=== PATIENT | male | born 1940 | race Caucasian/White ===

== ENCOUNTER 2024-06-16 13:12 | Inpatient (IN) | payer MEDICARE, SELFPAY ==
[2024-06-16] VITALS (17 sets, daily range): BP systolic 146–224; BP diastolic 68–112; BMI 21.2
--- NOTE | 2024-06-16 10:54 | ED.GENMED ---
History of Present Illness
General
Chief Complaint: Abdominal Symptoms
Source: patient, records and spouse
Time Seen by Provider: 06/16/24 10:17
History of Present Illness
History of Present Illness:
83-year-old male with past medical history of TIA, paroxysmal atrial fibrillation, hypertension, hyperlipidemia presenting to the emergency department at request by primary care provider for evaluation after patient started experiencing upper
abdominal pain and nausea and exertional dyspnea this past Friday. Patient notes that he often will ride his bike 5 to 6 miles around [facility] without any issues but acutely on Friday was barely able to walk 1/2 mile without significant
symptoms and reports since then with any continued attempted light exercise patient gets severe upper abdominal discomfort, nausea and shortness of breath. Presently patient reports he is asymptomatic. Denies any fevers or recent illnesses.
Patient notes that he has records with him that show a stress test about a year or so ago that did not show any ST changes. Patient is on Xarelto due to his history of paroxysmal atrial fibrillation reports good compliance with this. No other
concerns presently
Past History
Past History
ED Past Medical History: Arrthythmia, GERD, HTN and Hypercholesterolemia
ED Past Surgical History: Appendectomy, Orthopedic and Tonsilectomy
Social History
Tobacco: Non-smoker
Alcohol: None
Drug: None
Personal:
Living: with family
Review of Systems
Review of Systems
All Other Systems: ROS reviewed and negative except as documented in HPI and ROS
Phy Exam
Physical Exam
Physical Exam:
GENERAL: Alert , in no apparent distress
EYE: clear conjunctiva b/l
HEAD: NCAT
ENT: mmm.
CARDIAC: Regular rate and rhythm, systolic murmur LSB .
LUNGS: Clear breath sounds bilaterally, no acute respiratory distress, no wheezes/rales/rhonchi
ABDOMEN: Soft, without focal tenderness, no r/g, no cvat
NEUROLOGICAL: Alert and oriented
SKIN: Warm and dry, skin intact.
MUSCULOSKELETAL: well perfused.
PSYCH: Normal and appropriate interaction.
Scores
Heart Failure Risk
Heart Failure Risk Score: Not Applicable
Heart Score for Chest Pain Patients
STEMI patient?: No
History: Moderately Suspicious
ECG: Normal
Age: >/= 65 years
Risk Factors: 1 or 2 Risk Factors
Troponin: </= Normal Limit
Heart Score for Chest Pain Patients: 4
Heart Score Risk: 20.3% MACE over next 6 weeks
Withdrawal Assessment of Alcohol
Withdrawal Assessment Completed?: Not applicable
Course
Orders/Labs/Results
Orders:
Orders
06/16/24 10:21
Electrocardiogram (*1) Urgent
Reason for Study: Abdominal Pain
EKG- Treatment ONCE
06/16/24 10:48
CT Abd/pelvis W Iv Cont Urgent
Comment:
Reason For Exam: intermittent upper abd pain, previous appy
Complete Blood Count/No Diff Urgent
Comprehensive Metabolic Panel Urgent
Lipase Urgent
Troponin I Urgent
Urinalysis Reflex To Culture Urgent
Date Specimen was Collected: 06/16/24
Time Specimen was Collected: 10:36
06/16/24 12:09
Aspirin Chewable [Low Strength Aspirin] 324 mg PO NOW STA
06/16/24 12:12
Heparin 4,000 units IV NOW STA
Nursing to Place Non Medication Order As Directed
Physician Order: PTT 6 hours after initial start of Heparin infusion
Above order entered?: Yes
06/16/24 12:15
Heparin 41531 Units/250 ml 25,000 units in 250 ml IV PER PROTOCOL
Weight to be used for heparin protocol in kilograms (kg):: 66.1
Protocol:: Cardiac Tx/Acute Coronary
PTT Goal Range to be used:: PTT 73 to 111 seconds
Order type:: Initial
INITIAL Infusion Dose (UNITS/KG/hr) & then follow protocol:: 12 units/kg/hr
Infusion Dose in UNITS/hr & then follow protocol (UNITS/hr):: 800
INFUSION RATE in mL/hr & then follow protocol (mL/hr):: 8
PTT less than or equal to 64 seconds:: Increase rate by 200 units/hr (+ 2 mL/hr)
PTT 64.1 to 72.9 seconds:: Increase rate by 100 units/hr (+ 1 mL/hr)
PTT 73 to 111 seconds:: Target Range. No change in rate.
PTT 111.1 to 130.9 seconds:: Decrease rate by 100 units/hr (- 1 mL/hr)
PTT 131 to 199.9 seconds:: HOLD for 1 hr. Then decrease rate by 200 units/hr (- 2 mL/hr)
PTT greater than or equal to 200 seconds:: HOLD for 2 hrs & Notify Provider. Then decrease by 200 units/hr (-
2 mL/hr)
Lab follow-up:: Each change, PTT q6h until 2 consecutive are therapeutic. Then PTT
daily.
06/16/24 12:25
PTT Urgent
Comment: Obtain baseline before beginning heparin infusion if not already collected
06/16/24 12:53
Admit/Transfer Patient As Directed
Co-Sign Provider:
Level of Care: Inpatient admission
Assign to:: IVU
Physician / Group: Bobbi Concepcion
Diagnosis: NSTEMI
Reason for Hospitalization: NSTEMI
Expected length of stay greater than two midnights?: Yes
ELOS- Estimated Length of Stay in days: 3
I certify the patient meets the requirements for IP care: Yes
PRN Pain Medication Management As Directed
May give lesser potent ordered pain med per pt: Yes
preference::
Protocol:: Medication orders for pain may be administered in a
manner that supports deferring to patient preference
when the pt is:
- Requesting an ordered lesser potent pain medication.
Least to most potent pain medications are defined
as: acetaminophen < NSAID < tramadol < opioids
(morphine, oxycodone, hydromorphone).
- Requesting a lesser dose of the same medication IF
ORDERED.
- Requesting a less intrusive route of administration
if both routes are prescribed by the provider (PO <
IV).
06/16/24 12:56
Code Status As Directed
Resuscitation Status: Full Code
Abnormal Lab Results
06/16/24
10:48
RBC 3.89 L 10^6/uL
(4.70-6.10)
Hgb 11.9 L g/dL
(13.0-18.0)
Hct 33.9 L %
(39.0-52.0)
Sodium 133 L mmol/L
(135-145)
Chloride 96 L mmol/L
(98-107)
Troponin I 0.170 H* ng/ml
06/16/24 10:48
06/16/24 10:48
Vital Signs
Initial and Last Documented VS:
Initial Vital Signs
Temp Pulse Resp BP Pulse Ox
97.6 F 70 18 166/85 95
06/16/24 09:23 06/16/24 09:23 06/16/24 09:23 06/16/24 09:23 06/16/24 09:23
Last Documented Vital Signs
Temp Pulse Resp BP Pulse Ox
97.6 F 62 11 188/72 100
06/16/24 09:23 06/16/24 12:06 06/16/24 12:06 06/16/24 12:06 06/16/24 12:06
MDM/Problems Addressed
Differential Diagnosis Includes:
atypical ACS, new cardiac murmur, GERD/gastritis, hiatal hernia, pancreatitis
MDM/Problems Addressed:
83-year-old male presenting to the emergency department for evaluation of the request of primary care provider for evaluation of exertional epigastric abdominal pain, nausea and exertional dyspnea. Patient normally works out almost daily going 5 to
6 miles on his bike but now over the last few days has been barely able to walk anywhere without feeling symptoms. Patient states primary care provider wanted blood work and a CAT scan however based off of the findings of the murmur on his exam
with patient stating he is not sure if he has ever had a murmur in the past combined with history I am more concerned for cardiac cause of patient's symptoms. Will check labs and CT scan however I do feel consultation with cardiology is warranted
and I anticipate patient will need admission for further evaluation.
Chronic conditions affecting care: Arrhythmia
*Radiology
Radiology exam reviewed: radiology read reviewed
*Pulse Oximetry
Patient hypoxic: no
*EKG
Interpreted by ED Provider?: Yes
Heart Rate: 64
Rate: normal
Rhythm: sinus
[place]: left axis deviation
QRS Pattern: normal QRS
*Pulp Screen Operator Interpretation
Rate: normal
Rhythm: sinus
*Critical Care Note
Total Time (30-74mins, 75-104mins- exclusive of procedures): 32
comment:
Critical care statement: A total of 32 minutes of critical care time was provided for this patient. This includes management of unstable vital signs, evaluation of the patient at bedside, reviewing the patient's pertinent medical records, discussion
with consultants, review of old EKGs and review of pertinent medical records. This time with separate from time utilized to perform the aforementioned documented procedures
Data Reviewed
Review of Other/Old Records Reveals: Labs and Records (Patient brought a stress test from April 03, 2023 which noted he was symptomatic during the test but there was no ischemic changes on EKG)
Source: patient
Patient Management
Discussion with other providers: Hospitalist, PCP and Agriculture Research Director
Escalation/DeEscalation of care consider admission/obs:
Patient's troponin returned at 0.170. Currently chest pain-free. Patient did not take his dose of Xarelto today and notes that his last dose was yesterday afternoon. Notified cardiology who states okay to treat with heparin and they will come to
the ER to see the patient. Hospitalist team to admit. Findings on CT discussed. I attempted to contact primary care provider and left note with front line supervisor staff and if they would like to contact the ER back would be happy to discuss patient's
treatment plan here in the ER.
ED Attending Note
-
Portions of this chart may have been created with voice recognition software.� Occasional wrong word or��sound alike� substitutions may have occurred due to the inherent limitations of voice recognition software.
Discharge Plan
Departure
Patient Disposition: Admit
Date of Disposition: 06/16/24
Time of Disposition: 12:13
Presentation/result/management discussed w/ accepting MD/DO: Hospitalist
Discharge Problem:
Acute non-ST elevation myocardial infarction (NSTEMI)
Prescriptions:
No Action
pantoprazole [Protonix] 40 mg Tablet,Delayed Release (Dr/Ec)
40 mg PO DAILY
Metamucil Packet
1 packet PO DAILY
Theragen Tablet
1 tab PO DAILY
acetaminophen [Tylenol Extra Strength] 500 mg Tablet
1,000 mg PO BID
ascorbic acid (vitamin C) [Vitamin C] 500 mg Tablet
500 mg PO DAILY
flecainide 50 mg Tablet
50 mg PO Q12H
Xarelto 15 mg Tablet
15 mg PO QPM
Referrals:
Emani Garcia MD [Primary Care Provider] -
Interventions
Interventions:
*Risk Screen - Suicide Last Done: 06/16/24 09:23
*General Assessment Last Done: 06/16/24 09:23
*Neglect/Abuse Screening Last Done: 06/16/24 09:23
ED- Fall Risk Assessment Last Done: 06/16/24 10:41
*ED COVID-19 Vaccine History Last Done: 06/16/24 10:50
ZF-Focgmv-Xyirbfpwuo Assessment Last Done: 10/16/24 10:37
Discharge Date and Time
Print Language: BRITISH
[2024-06-16 11:06] LABS: Hematocrit 33.9 % (39.0-52.0); Hemoglobin 11.9 g/dL (13.0-18.0); Mean Corp Hgb Conc. 35.1 g/dL (33.0-37.0); Mean Corpuscular Hgb 30.6 pg (27.0-31.0); Mean Corpuscular Volume 87.1 fL (80.0-94.0); Platelet Count 172 10^3/uL (130-400); Red Blood Cell Count 3.89 10^6/uL (4.70-6.10); Red Cell Dist. Width 13.1 % (11.5-14.5); White Blood Cell Count 5.9 10^3/uL (4.8-10.8)
[2024-06-16 11:17] LABS: Urine Albumin Negative (Neg - Trace); Urine Bilirubin Negative (Negative); Urine Character Clear (Clear); Urine Color Yellow; Urine Glucose Negative (Negative); Urine Ketone Negative (Negative); Urine Leukocyte Negative (Negative); Urine Nitrite Negative (Negative); Urine Occult Blood Negative (Negative); Urine Urobilinogen Negative (Neg - 1+)
[2024-06-16 11:23] LABS: ALT (SGPT) 24 U/L (0-50); AST (SGOT) 35 U/L (17-59); Albumin 4.3 g/dl (3.5-5.0); Alkaline Phosphatase 55 U/L (38-126); Blood Urea Nitrogen 19 mg/dl (9-20); Calcium 9.5 mg/dl (8.4-10.2); Carbon Dioxide 27 mmol/L (22-30); Chloride 96 mmol/L (98-107); Estimated Creatinine Clearance 46 ml/min; Glucose 93 mg/dl (70-99); Lipase 75 U/L (23-300); Potassium 4.8 mmol/L (3.5-5.1); Sodium 133 mmol/L (135-145); Total Bilirubin 0.6 mg/dl (0.2-1.3); Total Protein 6.8 g/dl (6.3-8.2); eGFR > 60.00
--- NOTE | 2024-06-16 12:16 | HPS.HSE ---
Family Physician
-
Family Physician: Emani Garcia
Chief Complaint
-
upper abdominal pain and nausea
History of Present Illness
Mr. Les Gunter is a 83 yo man with hx TIA, paroxysmal afib on Xarelto, essential HTN, HLD presents to the ER with several days of upper abdominal pain and nausea.
He normally rides his bike 6 miles per day. On Friday he went for a walk and within 1/2 miles he felt upper abdominal discomfort and nausea. He had full body generalized weakness. Over next two days he reports similar symptoms, cannot walk more
than 1/2 mile. Called PCP who directed him to the ER. At rest patient has no symptoms.
No recent fevers/chills. No shortness of breath. No specific chest pain. No LE swelling. No rash.
Medical History
Past Medical History
Past Medical History: Reports Other (TIA, paroxysmal afib on Xarelto, essential HTN, HLD)
Past Surgical History: Reports Appendectomy, Orthopedic and Tonsilectomy
Social History
Tobacco: Non-smoker
Alcohol: None
Drug: None
Family History
Family History: Not pertinent
Allergies / Home Medications
Allergies reflects when Allergies were last updated in [facility].
Home Medications with original date entered in [facility]
Allergy/Medication List:
Allergies
Allergy/AdvReac Type Severity Reaction Status Date / Time
tetracycline Allergy Unknown Verified 06/16/24 09:23
Home Medications
acetaminophen 500 mg tablet (Tylenol Extra Strength) 1,000 mg PO BID 06/16/24
ascorbic acid (vitamin C) 500 mg tablet (Vitamin C) 500 mg PO DAILY 06/16/24
flecainide 50 mg tablet 50 mg PO Q12H 06/16/24
pantoprazole 40 mg tablet,delayed release (Protonix) 40 mg PO DAILY 06/16/24
psyllium 1 packet PO DAILY 06/16/24
rivaroxaban 15 mg tablet (Xarelto) 15 mg PO QPM 06/16/24
therapeutic multivitamin 1 tab PO DAILY 06/16/24
Review of Systems
-
History Source: Patient
A 12 point ROS was completed and negative except as noted: Yes
Physical Exam
Vital Signs
Vital Signs
Temp Pulse Resp BP Pulse Ox
97.6 F 62 11 188/72 100
06/16/24 09:23 06/16/24 12:06 06/16/24 12:06 06/16/24 12:06 06/16/24 12:06
Physical Exam
General: No Apparent Distress
HEENT: PERRLA
Respiratory: Clear; No Wheezes
Cardiac: S1/S2 and Regular Rhythm
GI: Soft and Non Tender
Musculoskeletal: No Edema
Skin: Warm and Dry; No Rash
Neuro: AO x 3
Psych: Calm
Laboratory Results
-
06/16/24 10:48
06/16/24 10:48
Laboratory Results
Total Bilirubin 0.6 mg/dl (0.2-1.3) 06/16/24 10:48
AST 35 U/L (17-59) 06/16/24 10:48
ALT 24 U/L (0-50) 06/16/24 10:48
Alkaline Phosphatase 55 U/L (38-126) 06/16/24 10:48
Troponin I 0.170 ng/ml H* 06/16/24 10:48
Lipase 75 U/L (23-300) 06/16/24 10:48
Data Reviewed
-
Diagnostic Radiology: Report Reviewed by me
Lab Data: Labs Reviewed by me
Impression/Plan
-
Mr. Les Gunter is a 83 yo man with hx TIA, paroxysmal afib on Xarelto, essential HTN, HLD presents to the ER with several days of upper abdominal pain and nausea.
Triage VS: T 97.6, P 70, RR 18, BP 166/85, SpO2 95%
LABS: WBC 5.9, Hg 11.9, PLT 172, Na 133, K+ 4.8, CO2 27, Cl 96, Cr 1.1, Glucose 93, liver enzymes WNL
Trop 0.170
EKG: NSR @ 64, left axis deviation
MAR: asa 324 + heparin gtt
NSTEMI
Upper abdominal pain and nausea
-admit to IVU
-heparin gtt started in ER and patient s/p ASA 324
-seen with cardiology at bedside
-NPO for possible cath today
-daily aspirin
-new start lipitor 40mg POqhs
-hold SUPERVISOR MIXING Xarelto
-continue IV heparin gtt
-nitro PRN
GERD
-SUPERVISOR MIXING Protonix
-Maalox PRN
Paroxysmal Afib
-hold SUPERVISOR MIXING Flecainide given CAD - follow up further cardilogy recs on b-vilma
-hold SUPERVISOR MIXING Xarelto while on IV heparin gtt
DVT PPx heparin gtt
FULL CODE - discussed on admission
[2024-06-16] MEDS: LOW STRENGTH ASPIRIN 324 MG PO (12:35)
[2024-06-16] MEDS: HEPARIN 25000 UNITS/250 ML IV ×2 (12:35→19:18)
[2024-06-16] MEDS: HEPARIN 4000 UNITS IV (12:56)
[2024-06-16 13:01] LABS: APTT 34.3 Sec (23.4-35.0)
--- NOTE | 2024-06-16 13:15 | CON.CAR ---
Addendum entered and electronically signed by Castro Bae MD 06/16/24 14:18:
I saw and examined the patient.
The FORKLIFT TRUCK MECHANIC's note was reviewed and I agree with the note.
Comment: New exertional midepigastric ache with exertional weakness since this weekend. Marked decline in exercise tolerance in just the last few days. Had associated nausea once. Troponin 0.170. EKG with septal Q wave c/w age indeterminate NE.
No ST elevation NE. Hx PAF not on rate control but on Xarelto and low dose flecainide. Denies HTN and not on meds for HTN. BP here is eleavated.
CT scan with several findings: 'Moderate colonic stool burden, possible constipation. There is a 1.0 cm segment of circumferential bowel wall thickening along the distal descending colon which may be due to underdistention however underlying
malignancy cannot be excluded. Consider follow-up colonoscopy. Colonic diverticulosis without evidence of acute diverticulitis. There is a fat-containing ventral hernia in the upper anterior midline abdominal wall with fat stranding in the hernia
sac, possible fat necrosis in the setting of incarceration. Recommend clinical correlation.
Imp
New onset class III angina with ACS, likely NSTEMI
Murmurs: Suspect MR and perhaps mild aortic stenosis
PAF
Elevated BP w/o dx of HTN
Abdominal findings as above => may need GI evaluation/followup
Ponce of hearing
Plan:
ASA
Cath/possible PCI
Echo
Trend BP
Check lipids
Likely GI evaluation either as inpatient of outpatient depending on findings/clinical course
Further evaluation and management will depend on clinical course/findings of cath
-
-
Original Note:
Consultation
Consultation Request
Date/Time Consultation Requested: 06/16/2024 12:00
Date/Time Consultation Performed: 06/16/2024 12:40
Requesting Provider: Dayne Hilario PA-C
Performing Provider: SHANAE Lim for Dr. Bae
Reason for Consultation: Abnormal troponin
Medical History
-
Chief Complaint: Epigastric pain
History of Present Illness:
Les Gunter is an 83-year-old male (known to Dr. Sharpe, his primary transcribing machine operator), with paroxysmal atrial fibrillation, paroxysmal atrial tachycardia, hypertension, dyslipidemia, and prior TIA (2021), who presented to the emergency
department with a chief complaint of epigastric pain. Mr. Gunter is very active. He rides his bicycle around [facility] frequently throughout the week. Each ride is around 5 to 6 miles. On Friday he had notable difficulty riding his bike.
He had midsternal epigastric discomfort. This discomfort did not radiate. He thought he was having issues with his bowels. He denied associated nausea, shortness of breath, dizziness, and diaphoresis. He does endorse feeling extremely fatigued
when this happens to where he could not continue pedaling. He also reports decreased tolerance and walking. He tried to go for a walk and do some light exercise when he was unable to ride his bike and symptoms returned.
Past Medical History
Past Medical History: Arrhythmias (Paroxysmal atrial fibrillation [on flecainide & rivaroxaban], paroxysmal atrial tachycardia), HTN, Hypercholesterolemia and Other (TIA)
Social History
Tobacco: Non-Smoker (Never smoker)
Alcohol: Occasional (once a week ([place]uck[place]))
Drug: None
Personal:
Living: With Family
Employment: Retired (Plumbing/HVAC)
Family History
Family History: Reviewed & Not Pertinent
Allergies / Home Medications
Allergy/AdvReac Type Severity Reaction Status Date / Time
tetracycline Allergy Unknown Verified 06/16/24 09:23
�Medication �Instructions �Recorded �Confirmed �Type
acetaminophen 500 mg tablet 1,000 mg PO BID 06/16/24 06/16/24 History
(Tylenol Extra Strength)
ascorbic acid (vitamin C) 500 mg 500 mg PO DAILY 06/16/24 06/16/24 History
tablet (Vitamin C)
flecainide 50 mg tablet 50 mg PO Q12H 06/16/24 06/16/24 History
pantoprazole 40 mg tablet,delayed 40 mg PO DAILY 06/16/24 06/16/24 History
release (Protonix)
psyllium 1 packet PO DAILY 06/16/24 06/16/24 History
rivaroxaban 15 mg tablet (Xarelto) 15 mg PO QPM 06/16/24 06/16/24 History
therapeutic multivitamin 1 tab PO DAILY 06/16/24 06/16/24 History
Review of Systems
-
History Source: Patient
All other systems: Negative unless noted
Constitutional: Fatigue
EENT: No Symptoms
Respiratory: No Symptoms
Cardiac: No Symptoms
Abdomen/GI: No Symptoms
: No Symptoms
Musculoskeletal: No Symptoms
Skin: No Symptoms
Neurological: No Symptoms
Endocrine: No Symptoms
Hematologic/Lymphatic: No Symptoms
Physical Exam
Vital Signs
Temp Pulse Resp BP Pulse Ox
97.6 F 62 11 188/72 100
06/16/24 09:23 06/16/24 12:06 06/16/24 12:06 06/16/24 12:06 06/16/24 12:06
Lab Results
06/16/24 10:48
06/16/24 10:48
Troponin I 0.170 ng/ml H* 06/16/24 10:48
Physical Exam
General: Well Developed, Well Nourished, No Apparent Distress and Comfortable
HEENT: Normocephalic and Anicteric
Respiratory: Clear and Non Labored Respirations
Cardiac: S1/S2, Regular Rhythm and Murmur (II/ ROSAURA)
Breast: Deferred by me
GI: Soft, Non Tender, Non Distended and Normal Bowel Sounds
Rectal: Deferred by Provider
Genito-urinary: No Costovertebral Tender
Musculoskeletal: No Clubbing, No Cyanosis and No Edema
Skin: Warm and Dry
Neuro: AO x 3
Hematologic/Lymphatic: No Lymphadenopathy
Psych: Calm
Impression / Plan
-
BACKGROUND: 83M with paroxysmal atrial fibrillation (flecainide and rivaroxaban), paroxysmal atrial tachycardia, hypertension, dyslipidemia, and prior TIA (2021), presents with epigastric pain
Grinder Operator External Tool: Dr. Centeno
NSTEMI
-Exertional epigastric pain, none at rest
-Septal Q waves
-Hold rivaroxaban, ASA 324 x 1, heparin drip
-Echocardiogram
-Cardiac catheterization today
-Start atorvastatin 80 mg daily
Paroxysmal atrial fibrillation
-In sinus rhythm, stop flecainide for NSTEMI as above
-He is not on any AV allyson agents
-Oral Anticoagulation: Rivaroxaban 15 mg on hold (creatinine clearance <50)
-[id number]: Score at least 6 (HTN, age 75 or more, prior Stroke/TIA, Vascular disease)
Systolic murmur, echocardiogram
HTN, consider starting KEMAL or ARB postprocedure
Dyslipidemia, atorvastatin 80mg
Prior TIA, transient left eye blindness in 2021, no residual deficit
Data Reviewed
-
EKG: Report Reviewed by me (Sinus rhythm, septal Q wave)
Labs: Labs Reviewed by me
Old Records: Reviewed
--- NOTE | 2024-06-16 16:39 | ITS.CL.CATH ---
Gang Bore Operator - Catheterization
Cardiac Catheterization
Procedure Report:
CARDIAC CATHETERIZATION REPORT
Date of Procedure: 06/16/2024
Referring: Castro Bae M.D.
INDICATION: Non-ST elevation myocardial infarction.
PROCEDURE:
1. Left heart catheterization.
2. Coronary angiography.
3. Successful intravascular ultrasound of the left main coronary artery.
ACCESS:
6 [place] right radial artery.
CATHETERS:
1. 5 [place] JR4.
2. 5 [place] JL 3.5.
3. 6 [place] JL 3.5 guiding catheter.
HEMODYNAMIC DATA
Weight (kg): 66.1
AO (s/d/x, mmHg): 152/77/106
LV (s/x mmHg): 154/8
LEFT VENTRICULOGRAPHY: Not performed.
CORONARY ANGIOGRAPHY
Dominance: Right.
Left Main: Normal size, trifurcating vessel. There is a densely calcified, 50% lesion in the proximal/mid vessel.
LAD: Normal size vessel giving rise to 1 significant diagonal. There is at least moderate disease in the proximal vessel. There is a 50% lesion in the distal/apical LAD.
Ramus: Normal size vessel supplying a significant amount of the anterolateral wall. There are minor luminal irregularities.
Circumflex: Large size vessel giving rise to 2 obtuse marginals before terminating as a left posterolateral branch. There is a critical, 90% lesion in the proximal margin of the circumflex leading into the origin of the OM1 which arises very high
off of the circumflex.
RCA: Large size, dominant vessel. There is a densely calcified, hazy, 90% lesion in the ostium of the vessel.
INTERVENTION(S)
1. Successful IVUS of the left main coronary artery from the circumflex and LAD perspectives, showing significant left main coronary artery stenosis.
Narrative:
The decision was made to perform intracoronary imaging. The diagnostic catheter was removed over a wire and exchanged for 6 Kyr[place]z JL 3.5 guiding catheter. The guiding catheter was advanced into the ascending aorta and seated in the left main
coronary artery. Additional heparin was given to obtain an ACT greater than 250 seconds. After crossing the lesion with a coronary wire, an IVUS catheter was advanced through the guiding catheter and into the ostium of the left main coronary
artery artery. Ring down was performed once the imaging crystal was no longer inside of the guiding catheter. The IVUS catheter was advanced into the left main coronary artery but would not pass very far into the circumflex. Intravascular ultrasound
was performed in a retrograde fashion using a slow pullback. Intracoronary imaging demonstrated significant stenosis within the left main coronary artery with dense calcification. The wire was redirected into the LAD and IVUS was repeated from the
LAD, confirming the stenosis and dense calcification. This also showed significant atherosclerotic disease within the proximal LAD. Minimal luminal area in the left main coronary artery was 4.5 mm�.
Closure Device: Vascular band.
Radiation (mGy): 512.63
DAP (cm2.Gy): 43.9013
Fluoroscopy time (minutes): 7.2
Sedation time (minutes): 62
CONCLUSIONS
1. Right dominant circulation with a densely calcified, hazy, 90% lesion in the ostium of the RCA, and occlusive, densely calcified, 50% lesion in the proximal to mid section of the left main coronary artery (MLA = 4.5 mm�), moderate disease in the
proximal LAD and a 90% lesion in the proximal margin of the circumflex leading into the origin of OM1.
2. Normal filling pressures (LVEDP = 8 mmHg at 66.1 kg).
RECOMMENDATIONS:
1. Expectant management after cardiac catheterization via right radial approach.
2. Limited weight bearing on the right wrist for one week.
3. Consultation with CT surgery regarding optimal revascularization strategy. We could consider bypass, culprit PCI with medical management of the left main and LCx disease or complete percutaneous revascularization, though this would be high risk.
4. Aggressive risk factor modification including high-dose, high potency statin.
5. Guideline directed medical therapy as hemodynamics will tolerate.
6. Echocardiogram ordered and pending.
Copy to: Castro Bae M.D., Emani Garcia M.D.
Jey Brar DO, FACC, FACP
--- NOTE | 2024-06-16 16:45 | CONSULT.CT ---
Addendum entered and electronically signed by Dayne Byrd MD 06/17/24 13:09:
I saw and examined the patient.
The PA's note was reviewed and I agree with the note.
Comment:
CARDIAC SURGERY ATTENDING:
It was my pleasure to meet with Mr. Les Gunter. I have reviewed his available imaging and medical history as well as his presentation. I have discussed his case with my colleagues. It is my belief that if this patient has PCI options to address
his coronary disease that these would be preferred over surgical intervention from a risk and the benefit perspective. I believe given his comorbidities and advanced age, his ability to successfully navigate the perioperative/postoperative course
would be challenging.
Thank you for the opportunity to participate in the care of this patient.
Please call with any questions or concerns.
Dayne Byrd MD
[phone]
Original Note:
Consultation
-
Date/Time Consultation Requested: 06/16/2024
Date/Time Consultation Performed: 06/16/2024
Requesting Provider: Dr. Jey Brar
Performing Provider: Carlitos caballero
Reason for Consultation: CABG evaluation
Patient History
Physicians
Family Physician: Emani Garcia
Outpatient Customer Assistance Representative: Sanchez Fenton
Inpatient Customer Assistance Representative: Dr Bae
History of Present Illness
Patient is a 83-year-old male with a past medical history of a TIA, paroxysmal atrial fibrillation on Xarelto and flecainide, hypertension, hyperlipidemia. He presented to [facility] emergency department complaining of acute onset epigastric
pain. He normally rides his bike approximately 6 miles at [facility] daily. On Friday he developed acute onset of epigastric pain and extreme fatigue after biking approximately 1/2 mile. This forced him to stop and rest. He again tried to
ride his bike and again complained of acute onset of abdominal discomfort along with nausea. He also complained of generalized body weakness and fatigue. He also had similar symptoms when walking approximately 1/2 mile. Patient has been
complaining of the symptoms for approximately 3 days and called his primary care physician who instructed him to go to the nearest emergency room. He has no symptoms at rest.
He ruled in for a NSTEMI. He underwent cardiac catheterization today by Dr. Brar that revealed multivessel coronary artery disease. Cardiothoracic surgery was consulted for CABG evaluation.
Patient would like to discuss possible stent options with invasive cardiology.
Preoperative studies will be ordered.
Past Medical History
Past Medical History: Angina, Arrhythmias, Atrial Fib, CAD, Covid-19, CVA/TIA, FELDMAN, HTN, Hypercholesterolemia and SOB
Past medical history: Ventral hernia
Paroxysmal atrial fibrillation on Xarelto last dose 06/15/2024
Hypertension
Hyperlipidemia
TIA 2 to 3 years ago, no residual symptoms
Past Surgical History
Past Surgical History: Orthopedic
Past surgical history: Appendectomy
Tonsillectomy
Right carpal tunnel release
Right shoulder replacement
Bilateral knee surgery
Dental History
n/a
Family History
Mother: at Age
Father: at Age
Social History
Alcohol: Occasional (Drinks 3 ounces of Chuckie Jeanine whiskey once a week)
Drug: None
Tobacco: Non-Smoker
Personal:
Living: With Spouse
Employment: Retired (Retired residential remodeling subcontractor)
Covid Vaccination History:
Admits to previous COVID infection
Admits to COVID-vaccine x 2 and booster
Allergies
Allergy/AdvReac Type Severity Reaction Status Date / Time
tetracycline Allergy Unknown Verified 06/16/24 09:23
Home Medications
�Medication �Instructions �Recorded �Confirmed �Type
acetaminophen 500 mg tablet 1,000 mg PO BID pain 06/16/24 06/16/24 History
(Tylenol Extra Strength)
ascorbic acid (vitamin C) 500 mg 500 mg PO DAILY Supplement 06/16/24 06/16/24 History
tablet (Vitamin C)
flecainide 50 mg tablet 50 mg PO Q12H Arrhythmia 06/16/24 06/16/24 History
pantoprazole 40 mg tablet,delayed 40 mg PO DAILY Gastrointestinal 06/16/24 06/16/24 History
release (Protonix) Issue
psyllium 1 packet PO DAILY Constipation 06/16/24 06/16/24 History
rivaroxaban 15 mg tablet (Xarelto) 15 mg PO QPM Blood Clot 06/16/24 06/16/24 History
Prevention/Tx
therapeutic multivitamin 1 tab PO DAILY Supplement 06/16/24 06/16/24 History
Review of Systems
-
History Source: Patient
General: Reports Fatigue
HEENT: Reports No Symptoms
Respiratory: Reports SOB
Cardiac: Reports Nausea and Other (Acute onset epigastric pain with exertion, fatigue and generalized body weakness with exertion such as riding bike or walking approximately half mile)
Abdomen/GI: Reports Other (Epigastric pain with exertion, negative colonoscopy 2018)
: Reports Nocturia
Musculoskeletal: Reports Arthralgias and Joint Pain
Skin: Reports No Symptoms
Neurological: Reports TIA (TIA 2 to 3 years ago no residual deficit)
Vascular: Reports No Symptoms
Physical Exam
Vital Signs
Temp 97.3 F 06/16/24 16:14
Temp route: Oral 06/16/24 16:14
Pulse 55 06/16/24 13:15
Resp Rate 20 06/16/24 16:14
Blood pressure 188/72 06/16/24 12:06
Blood pressure extremity used: Left upper arm 06/16/24 16:14
Position: Sitting 06/16/24 16:14
MAP (cuff-Brendan Monitor) 177 06/16/24 13:00
SaO2 98 06/16/24 16:14
Oxygen Mode of Delivery Room air 06/16/24 16:14
Acceptable pain level during hospitalization? 0 06/16/24 09:23
Can the patient verbally communicate their pain? Yes 06/16/24 13:22
Actual Weight 145 lb 11.609 oz 06/16/24 10:25
Body Mass Index (BMI) 21.2 06/16/24 10:25
Labs
06/16/24 10:48
06/16/24 10:48
APTT 34.3 Sec (23.4-35.0) 06/16/24 12:25
Troponin I Cancelled 06/16/24 17:00
Urinalysis
Urine Color Yellow 06/16/24 10:48
Urine Clarity Clear (Clear) 06/16/24 10:48
Urine pH 7.0 (5.0-9.0) 06/16/24 10:48
Ur Specific [place] 1.010 (<1.030) 06/16/24 10:48
Urine Ketones Negative (Negative) 06/16/24 10:48
Ur Occult Blood Reflex Negative (Negative) 06/16/24 10:48
Urine Bilirubin Negative (Negative) 06/16/24 10:48
Leukocyte Esterase Rfl Negative (Negative) 06/16/24 10:48
Urine Glucose Negative (Negative) 06/16/24 10:48
Urine Albumin (Reflex) Negative (Neg - Trace) 06/16/24 10:48
Exam
General: Well Developed, Well Nourished, No Apparent Distress and Comfortable
HEENT: Normocephalic and Atraumatic
Neck: Trachea Midline
Respiratory: Clear
Cardiac: Irregular Rhythm and Murmur
GI: Soft, Non Tender, Non Distended and Normal Bowel Sounds
Rectal: Deferred by Provider
Skin: Warm and Dry
Neuro: Awake, Alert, Oriented and AO x 3
Extremities: Pulses (No lower extremity edema, feet cool dry, dorsalis pedis pulses +1 bilaterally, posterior tibial pulses palpable bilaterally)
Lymph: No Lymphadenopathy
Psych: Calm
Assessment / Plan
-
Assessment:
NSTEMI status post cardiac catheterization today showing multivessel coronary artery disease
Hypertension
Hyperlipidemia
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
Paroxysmal atrial fibrillation on Xarelto last dose 06/15/2024, and flecainide
Ventral hernia
DJD/OA
GERD
Plan:
Patient would like to discuss PCI stenting options with invasive cardiology
Will hold off on preoperative studies at this time
Attending cardiothoracic surgeons to review all studies and will follow-up later this week.
[2024-06-16 17:12] LABS: Troponin I 0.181 ng/ml
[2024-06-16] MEDS: LIPITOR 80 MG PO (17:28)
--- NOTE | 2024-06-16 18:03 | PTCARENOTE ---
Pt received post procedure at 1600. Right radial site WNL. Denies any chest pain/ abd pain sob. SR, rate in the 60' to 80's.
[2024-06-16] MEDS: TYLENOL 1000 MG PO (19:49)
--- NOTE | 2024-06-16 21:49 | PTCARENOTE ---
Pt without complaints of cp. R radial band off @ 1940 without issues, site ecchymotic with + pulse. Heparin gtt restarted @ 1905 running @ 8ml/hr. POC discussed- pt verbalized understanding. BPs elevated- Dr. Sampson placed orders for Coreg
3.125mg BID. SR with 1st degree on the monitor.
[2024-06-16] MEDS: COREG 3.125 MG PO (22:04)
[2024-06-17] VITALS (7 sets, daily range): BP systolic 118–161; BP diastolic 57–74; BMI 20.7
[2024-06-17 03:37] LABS: Hematocrit 30.7 % (39.0-52.0); Mean Corp Hgb Conc. 35.8 g/dL (33.0-37.0); Mean Corpuscular Hgb 30.3 pg (27.0-31.0); Mean Corpuscular Volume 84.6 fL (80.0-94.0); Mean Platelet Volume 9.4 fL (7.4-10.4); Platelet Count 165 10^3/uL (130-400); Red Blood Cell Count 3.63 10^6/uL (4.70-6.10); White Blood Cell Count 5.7 10^3/uL (4.8-10.8)
[2024-06-17 03:46] LABS: APTT 84.4 Sec (23.4-35.0)
[2024-06-17 04:12] LABS: Blood Urea Nitrogen 19 mg/dl (9-20); Calcium 8.9 mg/dl (8.4-10.2); Carbon Dioxide 22 mmol/L (22-30); Chloride 99 mmol/L (98-107); Estimated Creatinine Clearance 49 ml/min; Glucose 85 mg/dl (70-99); HDL Cholesterol 51 mg/dl; LDL Cholesterol, Calculated 80 mg/dl; Potassium 4.6 mmol/L (3.5-5.1); Sodium 135 mmol/L (135-145); Total Cholesterol 142 mg/dl (50-199); Triglyceride 55 mg/dl (10-149); Very Low Density Lipoprotein 11 mg/dl (0-30); eGFR > 60.00
--- NOTE | 2024-06-17 06:37 | W.PN.HOSP.TC ---
Today's Communication/Plan
-
Will follow with cardiology recommendations
c/w BB
PRN nitro
Assessment / Plan
Assessment / Plan
Physical Exam
General: No Apparent Distress
HEENT: PERRLA
Respiratory: Clear; No Wheezes
Cardiac: S1/S2 and Regular Rhythm
GI: Soft and Non Tender
Musculoskeletal: No Edema
Skin: Warm and Dry; No Rash
Neuro: AO x 3
Psych: Calm
Mr. Les Gunter is a 83 yo man with hx TIA, paroxysmal afib on Xarelto, essential HTN, HLD presents to the ER with several days of upper abdominal pain and nausea.
# NSTEMI status post cardiac catheterization 06/16 showing multivessel coronary artery disease
-No pain in chest or abdomen
Was evaluated by CT surgery, likely PCI stenting options
-heparin gtt started IN ER and patient s/p ASA 324
- Started Coreg
-daily aspirin
-new started Lipitor 40mg PO, LDL 80
-holding Xarelto
-nitro PRN
Appreciate cardiology and CT help
#GERD
- Protonix
-Maalox PRN
# Hx of hyponatremia, will c/w regular diet
Pt tends to have low sodium, was hospitalized for hyponatremia before
#Paroxysmal atrial fibrillation on Xarelto last dose 06/15/2024, and flecainide
-held CLIENT SERVICES VICE PRESIDENT Flecainide , Started on Coreg
-Holding Xarelto while on IV heparin gtt
DVT PPx heparin gtt
FULL CODE - discussed on admission
Total time spent to see the patient on the floor, examine the patient, review data and lab results, discuss treatment plan with patient, nursing staff around 55 minutes
Anticipated Discharge: > 48 hours
Subjective/Interval History
-
Date of Service: June 17, 2024
Objective Data
-
Labs:
Laboratory Results
06/16/24 06/17/24
18:00 03:08
WBC 5.7
Hgb 11.0 L
Hct 30.7 L
Plt Count 165
APTT Cancelled 84.4 H
Sodium 135
Potassium 4.6
Chloride 99
Carbon Dioxide 22
BUN 19
Creatinine 1.0
Glucose 85
Calcium 8.9
Vital Signs:
Vital Signs
Temp Pulse Resp BP Pulse Ox
98.2 F 62 18 127/74 98
06/17/24 03:01 06/17/24 03:00 06/17/24 03:01 06/17/24 03:00 06/17/24 03:01
[2024-06-17] MEDS: PROTONIX 40 MG PO (07:08)
--- NOTE | 2024-06-17 07:41 | W.PN.CD ---
Addendum entered and electronically signed by Jey Brar DO 06/17/24 11:49:
CT surgery evaluated this AM.
CABG deemed too high risk given age.
Discussed with patient and daughter.
Plan for PCI of RCA tomorrow and medical management of LMCA/LCx disease.
If angina persists after RCA intervention, we can consider high risk PCI of the LCx/LMCA at a future date.
General surgery consult for ventral hernia discomfort.
Original Note:
Today's Communication / Plan
-
Echocardiogram pending.
Consultation with CT surgery.
Decision regarding revascularization strategy. Patient was leaning towards PCI of RCA/medical management of left sided disease, but we will give him all the options.
General surgery discussion regarding ventral hernia/fat necrosis/incarceration.
Impression / Plan
-
Impression/Plan: 83M with paroxysmal atrial fibrillation (flecainide and rivaroxaban), paroxysmal atrial tachycardia, hypertension, dyslipidemia, and prior TIA (2021) admitted with NSTEMI.
#NSTEMI
-Acute.
-Exertional epigastric pain, none at rest.
-Troponin up to 0.230.
-Septal Q waves on EKG.
-Catheterization shows hazy, culprit, densely calcified 90% ostial RCA lesion as well as chronic, obstructive disease in the LMCA and ostial LCx.
-Discussed with primary cardiology and CT surgery yesterday.
-CT surgery consulted - I suspect we will offer one of three options:
1. CABG.
2. PCI of RCA with medical management of left sided disease.
3. Complete percutaneous revascularization.
-We will discuss options to day and form a plan.
#Paroxysmal atrial fibrillation
-Currently in NSR.
-D/C flecainide given CAD.
-Rate control with carvedilol.
-[id number]: Score at least 6 (HTN, age 75 or more, prior Stroke/TIA, Vascular disease).
-Oral Anticoagulation: Rivaroxaban 15 mg on hold (creatinine clearance <50).
#Systolic murmur
-New diagnosis.
-No on cardiac catheterization.
-Echocardiogram pending.
#Ventral Hernia
-New diagnosis.
-CT suggests possible fat necrosis/incarceration.
-Patient denies abdominal pain.
-I will discuss with general surgery.
#HTN
-Not previously treated.
-Tolerating carvedilol.
#Dyslipidemia
-Chronic.
-Start atorvastatin 80mg.
#Prior TIA
-Remote (2021).
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
Shiatsu Therapist: Dr. Centeno
Subjective/Interval History:
Admitted with recurrent epigastric pain, new EKG findings.
Catheterization shows a culprit, densely calcified ostial RCA lesion with obstructive LMCA/LCx disease on angiography/IVUS.
Hypertensive yesterday, responding well to carvedilol.
No further abdominal tightening (his description of angina).
DATA:
Cardiac Catheterization, 06/16/2024:
CONCLUSIONS
1. Right dominant circulation with a densely calcified, hazy, 90% lesion in the ostium of the RCA, and occlusive, densely calcified, 50% lesion in the proximal to mid section of the left main coronary artery (MLA = 4.5 mm�), moderate disease in the
proximal LAD and a 90% lesion in the proximal margin of the circumflex leading into the origin of OM1.
2. Normal filling pressures (LVEDP = 8 mmHg at 66.1 kg).
CT Abdomen/Pelvis, 06/16/2024:
IMPRESSION:
Moderate colonic stool burden, possible constipation. There is a 1.0 cm segment of circumferential bowel wall thickening along the distal descending colon which may be due to underdistention however underlying malignancy cannot be excluded. Consider
follow-up colonoscopy.
Colonic diverticulosis without evidence of acute diverticulitis.
There is a fat-containing ventral hernia in the upper anterior midline abdominal wall with fat stranding in the hernia sac, possible fat necrosis in the setting of incarceration. Recommend clinical correlation.
Fat-containing left inguinal hernia.
Physical Exam
Vital Signs/Labs
Vital Signs
Temp Pulse Resp BP Pulse Ox
36.8 C 62 18 127/74 98
06/17/24 03:01 06/17/24 03:00 06/17/24 03:01 06/17/24 03:00 06/17/24 03:01
06/15/24 06/16/24 06/17/24
11:59 11:59 11:59
Actual Weight 66.1 kg 64.5 kg
06/17/24 03:08
06/17/24 03:08
APTT 84.4 Sec (23.4-35.0) H 06/17/24 03:08
Triglycerides 55 mg/dl (10-149) 06/17/24 03:08
LDL Cholesterol, Calc 80 mg/dl 06/17/24 03:08
VLDL Cholesterol, Calc 11 mg/dl (0-30) 06/17/24 03:08
HDL Cholesterol 51 mg/dl 06/17/24 03:08
LAB Results
06/16/24 06/16/24 06/16/24
10:48 15:30 16:38
Troponin I 0.170 H* Cancelled 0.181 H*
06/16/24 06/16/24
17:00 22:03
Troponin I Cancelled 0.230 H* D
Physical Exam
Constitutional: No acute distress and Comfortable
EENT: Anicteric and Moist mucous membranes
Cardiovascular: Rhythm & rate is regular, Pedal edema is absent, JVD pressure is normal, S1S2 is normal and Murmur/rub/gallop absent
Respiratory: Respiratory effort normal, Lungs clear to auscul., Wheeze Absent, Crackles Absent and Rhonchi Absent
GI: Soft, Distention absent, Flat, Non tender and Normal bowel sounds
Neuro/Psych: AO x 3
Other: Cath Site (Right radial access site is C/D/I.)
Data Reviewed
-
Date of Service: June 17, 2024
Medical Decision Making: Reviewed Test Results and Independent Historian Assessment
EKG: Tracing Personally Visualized and interpreted and Report Reviewed by me
Echo: Ordered by me
X-Ray/CT/US/MRI/NUC/PET: Image Personally Visualized and interpreted and Report Reviewed by me
Medical Tests (PFT, Pathology etc): Image Personally Visualized and interpreted and Report Reviewed by me
Labs: Labs Reviewed by me
[2024-06-17] MEDS: THERAGRAN 1 TABLET PO (07:46)
[2024-06-17] MEDS: LOW STRENGTH ASPIRIN 81 MG PO (07:46)
[2024-06-17] MEDS: COREG 3.125 MG PO ×2 (07:46→19:54)
[2024-06-17] MEDS: VITAMIN C 500 MG PO (07:46)
[2024-06-17] MEDS: TYLENOL 1000 MG PO ×2 (07:48→19:54)
[2024-06-17] MEDS: METAMUCIL, KONSYL 1 PACKET PO (07:48)
[2024-06-17 10:46] LABS: APTT 70.1 Sec (23.4-35.0)
[2024-06-17 11:00] LABS: Troponin I 0.228 ng/ml
--- NOTE | 2024-06-17 11:52 | CM ---
CM following for DC planning needs.
Met w/ patient and spouse at bedside to complete initial assessment.
Pt. resides w/ spouse in a private, [address] apartment accessible via elevator.
Pt. is functionally indep. at baseline w/ ADLs, mobility without the use of any assisted device; though, he as a RW, SPC and crutches for use if needed.
Pt. is very active, avid bike rider.
Pt. has Rx plan and uses [facility] for Rx needs or [facility] mail order.
Anticipate DC to home, no needs.
Will cont. to follow.
[2024-06-17 12:31] LABS: Glycohemoglobin (HgbA1c) 5.2 % (4.0-5.6)
--- NOTE | 2024-06-17 12:43 | CON.GS ---
Consultation
-
Performing Provider: Valdez
Reason for Consultation: Ventral Hernia
Medical History
-
Chief Complaint: Abdominal pain, hernia, fatigue
History of Present Illness:
Patient is a very active 83-year-old male who exercises on a regular basis. He has had a known epigastric ventral hernia for 40+ years that has been stable and he was following expectantly due to lack of associated symptoms.
He was in his usual baseline state of health until this past Friday when he noted the acute onset of epigastric/upper abdominal discomfort with dyspnea/shortness of breath and exercise intolerance. His symptoms started in the middle of his typical
bike around [place]. He used to row 6 miles a day. Now he bikes 6 miles a day around [facility] that he has been doing for years. He states that he felt a pressure-like upper abdominal discomfort and pain. He felt as though his hernia was
likely a bit more swollen than usual as well. He stopped his bike and his symptoms subsided. The next day he attempted to bike around the [place] again and the same symptoms reoccurred but to a lesser severity. They did not start until he was about
a half a mile into his bike. He does not recall the hernia hurting prior to starting his exercise and states that he does think the hernia is a bit more protuberant during his exercise but has difficulty specifically localizing pain to the site.
Once again the following day on Friday he now attempted to walk around [place] and his exercise intolerance returned with shortness of breath heaviness and upper abdominal tightness. This time he saw his primary care physician who referred
him for CT scan and he had subsequent emergency department evaluation.
Patient has been found to have active coronary disease. General surgery consultation is requested for evaluation of the hernia.
Past Medical History
Past Medical History: Other (P A-fib, CAD, ventral hernia, hypertension, dyslipidemia, prior TIA, cataracts)
Past Surgical History: Appendectomy (As a child)
Social History
Tobacco: Non-Smoker
Personal:
Living: With Family
Employment: Retired
Family History
Family History: Reviewed & Not Pertinent
Allergies / Home Medications
Allergy/AdvReac Type Severity Reaction Status Date / Time
tetracycline Allergy Unknown Verified 06/16/24 09:23
�Medication �Instructions �Recorded �Confirmed �Type
acetaminophen 500 mg tablet 1,000 mg PO BID pain 06/16/24 06/16/24 History
(Tylenol Extra Strength)
ascorbic acid (vitamin C) 500 mg 500 mg PO DAILY Supplement 06/16/24 06/16/24 History
tablet (Vitamin C)
flecainide 50 mg tablet 50 mg PO Q12H Arrhythmia 06/16/24 06/16/24 History
pantoprazole 40 mg tablet,delayed 40 mg PO DAILY Gastrointestinal 06/16/24 06/16/24 History
release (Protonix) Issue
psyllium 1 packet PO DAILY Constipation 06/16/24 06/16/24 History
rivaroxaban 15 mg tablet (Xarelto) 15 mg PO QPM Blood Clot 06/16/24 06/16/24 History
Prevention/Tx
therapeutic multivitamin 1 tab PO DAILY Supplement 06/16/24 06/16/24 History
Review of Systems
-
History Source: Patient and Family
All other systems: Negative unless noted
A 10 point review of systems was completed, and was negative except as per HPI.
Physical Exam
Vital Signs
Temp Pulse Resp BP Pulse Ox
97.4 F 62 16 131/72 91
06/17/24 11:16 06/17/24 11:16 06/17/24 11:16 06/17/24 07:46 06/17/24 11:16
06/16/24 06/17/24 06/18/24
06:59 06:59 06:59
Actual Weight 64.5 kg
Body Mass Index (BMI) 20.7
Lab Results
06/17/24 03:08
06/17/24 03:08
WBC 5.7 10^3/uL (4.8-10.8) 06/17/24 03:08
Hgb 11.0 g/dL (13.0-18.0) L 06/17/24 03:08
Hct 30.7 % (39.0-52.0) L 06/17/24 03:08
Plt Count 165 10^3/uL (130-400) 06/17/24 03:08
Physical Exam
General: Well Developed, Well Nourished and No Apparent Distress
HEENT: Normocephalic, Anicteric and Moist Mucous Membranes
Respiratory: Non Labored Respirations
GI: Soft, Non Tender, Non Distended and Other (Soft, easily reducible ventral hernia. Nontender.)
Neuro: AO x 3
Psych: Calm
Data Reviewed
-
CT Scan: Image Personally Visualized and interpreted, Report Reviewed by me, Discussed with Physician, Discussed with Patient and Discussed with Family
Assessment / Plan
-
Assessment/plan: 83-year-old male found to have active coronary disease with probable angina. Presence of a longstanding ventral hernia that he has been following expectantly for 40+ years.
CT radiologist report mentions concern for 'possible fat necrosis in the setting of incarceration.' On examination the epigastric ventral hernia is very soft, completely reducible without any tenderness. No clinical signs of incarceration or
strangulation or obstruction.
Still a bit uncertain if hernia was triggering his abdominal tightness and discomfort with activity or if it is purely anginal in nature.
Given degree of obstructive disease seen on cardiac catheterization and cardiology assessment with the ventral hernia being easily reducible and asymptomatic during hospitalization would agree with plan to proceed with coronary revascularization as
per cardiology/CT surgery recommendations.
No indications for urgent operative management of his ventral hernia. Fat-containing only hernia, there is no bowel/visceral involvement on imaging. Surgical correction of hernia can be reconsidered at a later date after recovery from coronary
intervention. Patient advises he is leaning towards and would prefer continued expectant management of his hernia going forward.
Signing off, please call if can be of further assistance with care.
[2024-06-17] MEDS: LIPITOR 80 MG PO (17:21)
--- NOTE | 2024-06-17 17:42 | PTCARENOTE ---
Pt OOB in chair for most of the day, laina well, offers no complaints. He remains SB-SR on white washer piler.
[2024-06-17 17:58] LABS: APTT 83.9 Sec (23.4-35.0)
--- NOTE | 2024-06-17 22:08 | PTCARENOTE ---
Rec'd pt at handoff. AOX3 and pleasant. Tele- SR. HR 60s. Heparin gtt infusing at 900 units/hr. R radial site is c/d/i. Plan of care reviewed w/ pt. Verbalizes understanding. Aware of NPO status after midnight. Pt has no c/o CP/discomfort at this
time. Currently in bed; call leilani w/in reach.
[2024-06-17 23:59] LABS: APTT 86.1 Sec (23.4-35.0)
[2024-06-18] VITALS (14 sets, daily range): BP systolic 134–191; BP diastolic 63–128; BMI 19.8
[2024-06-18] MEDS: HEPARIN 25000 UNITS/250 ML IV (00:53)
[2024-06-18 04:14] LABS: Hematocrit 31.3 % (39.0-52.0); Hemoglobin 11.1 g/dL (13.0-18.0); Mean Corp Hgb Conc. 35.5 g/dL (33.0-37.0); Mean Corpuscular Hgb 31.6 pg (27.0-31.0); Mean Corpuscular Volume 89.2 fL (80.0-94.0); Mean Platelet Volume 9.5 fL (7.4-10.4); Platelet Count 152 10^3/uL (130-400); Red Blood Cell Count 3.51 10^6/uL (4.70-6.10); Red Cell Dist. Width 12.8 % (11.5-14.5); White Blood Cell Count 5.1 10^3/uL (4.8-10.8)
[2024-06-18 04:36] LABS: APTT 94.2 Sec (23.4-35.0)
--- NOTE | 2024-06-18 06:42 | W.PN.HOSP.TC ---
Today's Communication/Plan
-
NPO, for cath today
c/w IV heparin gtt until no further cardiac procedures needed.
Assessment / Plan
Assessment / Plan
Physical Exam
General: No Apparent Distress
HEENT: PERRLA
Respiratory: Clear; No Wheezes
Cardiac: S1/S2 and Regular Rhythm
GI: Soft and Non Tender
Musculoskeletal: No Edema
Skin: Warm and Dry; No Rash
Neuro: AO x 3
Psych: Calm
Mr. Les Gunter is a 83 yo man with hx TIA, paroxysmal afib on Xarelto, essential HTN, HLD presents to the ER with several days of upper abdominal pain and nausea.
# NSTEMI status post cardiac catheterization 06/16 showing multivessel coronary artery disease
-No pain in chest or abdomen
Plan for Cath today
Was evaluated by CT surgery, recommended PCI stenting options
-heparin gtt started IN ER and patient s/p ASA 324
- Started Coreg
-daily aspirin
-new started Lipitor 40mg PO, LDL 80
-holding Xarelto
-nitro PRN
Appreciate cardiology and CT help
#GERD
- Protonix
-Maalox PRN
# Incidental finding of possible fat necrosis in chronic ventral hernia
No local tenderness
No clinical signs of incarceration or inflammation
c/w monitoring only
# Hx of hyponatremia, c/w regular diet
Pt tends to have low sodium, was hospitalized for hyponatremia before
#Paroxysmal atrial fibrillation on Xarelto last dose 06/15/2024, and flecainide
-held SLAB GRINDER Flecainide , Started on Coreg
-Holding Xarelto while on IV heparin gtt
DVT PPx heparin gtt
FULL CODE - discussed on admission
Total time spent to see the patient on the floor, examine the patient, review data and lab results, discuss treatment plan with patient, nursing staff around 55 minutes
Anticipated Discharge: 24 - 48 hours
Subjective/Interval History
-
Date of Service: June 18, 2024
No chest pain
No sob
Objective Data
-
Labs:
Laboratory Results
06/17/24 06/18/24
23:30 03:38
WBC 5.1
Hgb 11.1 L
Hct 31.3 L
Plt Count 152
APTT 86.1 H 94.2 H
Vital Signs:
Vital Signs
Temp Pulse Resp BP Pulse Ox
97.4 F 61 18 153/77 97
06/18/24 03:31 06/18/24 03:40 06/18/24 03:31 06/18/24 03:40 06/18/24 03:31
I&O
06/16/24 06/17/24 06/18/24
06:59 06:59 06:59
Output Total 975 / 975
Balance -975 / -975
--- NOTE | 2024-06-18 07:48 | W.PN.CD ---
Today's Communication / Plan
-
PCI of RCA today.
Medical management of LMCA/LCx.
Plan to load with clopidogrel in the lab.
Restart OAC after PCI.
Discharge planning.
Impression / Plan
-
Impression/Plan: 83M with paroxysmal atrial fibrillation (flecainide and rivaroxaban), paroxysmal atrial tachycardia, hypertension, dyslipidemia, and prior TIA (2021) admitted with NSTEMI.
#NSTEMI
-Acute.
-Exertional epigastric pain, none at rest.
-Troponin up to 0.230.
-Septal Q waves on EKG.
-Catheterization shows hazy, culprit, densely calcified 90% ostial RCA lesion as well as chronic, obstructive disease in the LMCA and ostial LCx.
-After thorough discussion with CT surgery and the patient, we will plan to proceed with PCI of the ostial RCA as this is the culprit lesion. LMCA/LCx disease will be managed medically for the time being.
-If he has angina after RCA revascularization, we can consider a high risk LMCA/LCx PCI at a later date.
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
-Continue carvedilol and atorvastatin.
#Paroxysmal atrial fibrillation
-Currently in NSR.
-D/C flecainide given CAD.
-Rate control with carvedilol.
-[id number]: Score at least 6 (HTN, age 75 or more, prior Stroke/TIA, Vascular disease).
-Oral Anticoagulation: Rivaroxaban 15 mg on hold (creatinine clearance <50). We will resume OAC after catheterization.
#Systolic murmur
-New diagnosis.
-No on cardiac catheterization.
-Echocardiogram pending.
#Ventral Hernia
-New diagnosis.
-CT suggests possible fat necrosis/incarceration.
-Patient denies abdominal pain. Initially it was unclear if this was causing his admission pain, but it appears separate.
-General surgery evaluated - input appreciated.
-Conservative management at this time.
#HTN
-Not previously treated.
-Tolerating carvedilol.
#Dyslipidemia
-Chronic.
-Start atorvastatin 80mg.
#Prior TIA
-Remote (2021).
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
#Dispo
-IVU status.
-Full Code.
-Discharge planning (today vs. tomorrow).
Obstetrics Gynecology Md: Dr. Centeno
Subjective/Interval History:
No acute events.
Echo shows preserved LVEF, some anteroseptal hypokinesis.
General surgery evaluated ventral hernia - no plans for surgical intervention.
DATA:
Cardiac Catheterization, 06/16/2024:
CONCLUSIONS
1. Right dominant circulation with a densely calcified, hazy, 90% lesion in the ostium of the RCA, and occlusive, densely calcified, 50% lesion in the proximal to mid section of the left main coronary artery (MLA = 4.5 mm�), moderate disease in the
proximal LAD and a 90% lesion in the proximal margin of the circumflex leading into the origin of OM1.
2. Normal filling pressures (LVEDP = 8 mmHg at 66.1 kg).
CT Abdomen/Pelvis, 06/16/2024:
IMPRESSION:
Moderate colonic stool burden, possible constipation. There is a 1.0 cm segment of circumferential bowel wall thickening along the distal descending colon which may be due to underdistention however underlying malignancy cannot be excluded. Consider
follow-up colonoscopy.
Colonic diverticulosis without evidence of acute diverticulitis.
There is a fat-containing ventral hernia in the upper anterior midline abdominal wall with fat stranding in the hernia sac, possible fat necrosis in the setting of incarceration. Recommend clinical correlation.
Fat-containing left inguinal hernia.
TTE, 06/17/2024:
CONCLUSIONS
Normal biventricular size and systolic function.
Mild hypokinesis of the mid anteroseptal wall.
Moderate concentric left ventricular hypertrophy.
Mild to moderate mitral regurgitation.
Mild aortic stenosis.
Mild aortic regurgitation.
No prior study available for comparison.
Physical Exam
Vital Signs/Labs
Vital Signs
Temp Pulse Resp BP Pulse Ox
36.3 C 61 18 153/77 97
06/18/24 03:31 06/18/24 03:40 06/18/24 03:31 06/18/24 03:40 06/18/24 03:31
06/16/24 06/17/24 06/18/24
11:59 11:59 11:59
Actual Weight 66.1 kg 64.5 kg 61.6 kg
06/18/24 03:38
06/17/24 03:08
APTT 94.2 Sec (23.4-35.0) H 06/18/24 03:38
Triglycerides 55 mg/dl (10-149) 06/17/24 03:08
LDL Cholesterol, Calc 80 mg/dl 06/17/24 03:08
VLDL Cholesterol, Calc 11 mg/dl (0-30) 06/17/24 03:08
HDL Cholesterol 51 mg/dl 06/17/24 03:08
LAB Results
06/16/24 06/16/24 06/16/24
10:48 15:30 16:38
Troponin I 0.170 H* Cancelled 0.181 H*
06/16/24 06/16/24 06/17/24
17:00 22:03 10:25
Troponin I Cancelled 0.230 H* D 0.228 H*
06/17/24 06/17/24
14:00 20:00
Troponin I Cancelled Cancelled
Physical Exam
Constitutional: No acute distress and Comfortable
EENT: Anicteric and Moist mucous membranes
Cardiovascular: Rhythm & rate is regular, Pedal edema is absent, JVD pressure is normal, S1S2 is normal and Murmur/rub/gallop absent
Respiratory: Respiratory effort normal, Lungs clear to auscul., Wheeze Absent, Crackles Absent and Rhonchi Absent
GI: Soft, Distention absent, Flat, Non tender and Normal bowel sounds
Neuro/Psych: AO x 3
Data Reviewed
-
Date of Service: June 18, 2024
Medical Decision Making: Reviewed Test Results, Independent Historian Assessment, Test Interpretation and Review of Case with other Provider
EKG: Tracing Personally Visualized and interpreted and Report Reviewed by me
Echo: Tracing Personally Visualized and interpreted and Report Reviewed by me
X-Ray/CT/US/MRI/NUC/PET: Image Personally Visualized and interpreted and Report Reviewed by me
Medical Tests (PFT, Pathology etc): Image Personally Visualized and interpreted, Report Reviewed by me, Discussed with Physician, Discussed with Patient and Discussed with Family
Labs: Labs Reviewed by me
Old Records: Reviewed
[2024-06-18 07:56] LABS: ACT-LR - POC > 397 Seconds (116-155)
[2024-06-18] MEDS: COREG 3.125 MG PO ×2 (08:40→20:12)
[2024-06-18] MEDS: LOW STRENGTH ASPIRIN 81 MG PO (08:41)
[2024-06-18] MEDS: PROTONIX 40 MG PO (08:41)
[2024-06-18] MEDS: TYLENOL 1000 MG PO ×2 (08:41→20:21)
[2024-06-18] MEDS: METAMUCIL, KONSYL 1 PACKET PO (08:42)
--- NOTE | 2024-06-18 11:23 | CM ---
CM following for DC planning needs.
Met w/ patient and spouse at bedside. Plan for CATH today. Pt. anxiously awaiting this procedure.
Reviewed DC plan for home without needs. Pt. anticipates no needs once medically stable.
Will remain avail.
[2024-06-18] MEDS: NSS 1000 IV (16:40)
--- NOTE | 2024-06-18 17:01 | ITS.CL.ANGIO ---
[employer] - Angioplasty
Angioplasty
Procedure Report:
CARDIAC CATHETERIZATION REPORT
Date of Procedure: 06/18/2024
Referring: Dayne Byrd M.D.
INDICATION: Non-ST elevation myocardial infarction, multivessel coronary artery disease, surgical turndown.
PROCEDURE:
1. Left heart catheterization.
2. Right coronary angiography.
3. Successful intracoronary lithotripsy of the proximal/ostial right coronary artery.
4. Successful PCI of the proximal right coronary artery.
5. Ostial RCA stent dislodgment with successful snare/retrieval.
6. Successful PCI of the ostial right coronary artery.
ACCESS:
6 Trinidadian right radial artery.
18 Trin[place]adian right common femoral artery using a modified Seldinger technique with a micropuncture kit under ultrasound guidance, preclosed with a Perclose device.
CATHETERS:
1. 6 Trinidadian JR4 guiding catheter via right radial approach.
2. 6 Trinidadian JR4 guiding catheter via the right common femoral approach.
3. 20 mm gooseneck snare.
HEMODYNAMIC DATA
Weight (kg): 61.2
AO (s/d/x, mmHg): 125/66/89
LV (s/x mmHg): 134/10
LEFT VENTRICULOGRAPHY: Not performed.
CORONARY ANGIOGRAPHY
Dominance: Right.
Left Main: Not injected. Known to be a normal size, trifurcating vessel with a densely calcified, occlusive, 50% lesion in the proximal/mid vessel (MLA 4.5 mm�).
LAD: Not injected. Known to be a normal size vessel giving rise to 1 significant diagonal with at least moderate disease in the proximal vessel and a 50% lesion in the distal/apical LAD.
Ramus: Not injected. Known to be a normal size vessel supplying a significant amount of the anterolateral wall with minor luminal irregularities.
Circumflex: Not injected, known to be a large size vessel giving rise to 2 obtuse marginals before terminating as a left posterolateral branch. There is a critical 90% lesion of the proximal margin of the circumflex leading into the origin of OM1
that arises very high off of the circumflex.
RCA: Large size, dominant vessel. There is a densely calcified, hazy, 90% lesion in the ostium of the RCA.
INTERVENTION(S)
1. Successful intracoronary lithotripsy of the densely calcified 90% ostial RCA lesion (shockwave 2.5 x 12 coronary lithotripsy balloon).
2. Successful PCI of the 90% proximal RCA lesion (Medtronic [place] 3.0 x 18 JHONATHAN, postdilated with a 3.0 NC balloon) with reduction in stenosis to 0%, maintaining BRIANDA-3 flow.
3. Dislodgment of an ostial RCA stent with successful snare removal via the right common femoral artery.
4. Successful PCI of the ostial RCA (Medtronic [place] 3.5 x 12 JHONATHAN) with reduction in stenosis to 0%, maintaining BRIANDA-3 flow.
Narrative:
The decision was made to proceed with percutaneous coronary intervention. The 6Fr JR4 guiding catheter was advanced to the aortic root and seated in the right coronary artery. Additional heparin was given and a Power Turn Flex wire was advanced into
the distal RCA. The densely calcified, hazy, 90% ostial/proximal RCA lesion was predilated with a 2.0 x 12 semi-compliant balloon to 12 valencia. The semi-compliant balloon was removed.
A Shockwave 2.5 x 12 coronary lithotripsy balloon was advanced over the wire but would not advance into the ostial/proximal RCA. The shockwave balloon was withdrawn and a 6 Trin[place] guide liner was advanced to the right coronary artery. This was
advanced into the right coronary artery using the 2.0 x 12 semicompliant balloon for support with a sheathing technique. After securing the GuideLiner in place, the semicompliant balloon was withdrawn and the shockwave balloon was readvanced into
the ostial/proximal RCA lesion. The balloon was sterilely connected to the controller and prepped to negative pressure. Meticulous care was taken while positioning the shockwave balloon. Once in satisfactory position, the balloon was inflated to
4 valencia. After confirming good contact with the vessel wall, 10 pulses were delivered. After delivering 10 pulses, the balloon was inflated to 6 valencia then deflated. The entire lesion was treated in a similar manner for total of 12 rounds. As the
shockwave balloon was deflated, the guide liner was readvanced into sheathing technique, easily passing into the proximal RCA.
The shockwave balloon was withdrawn and a 3.0 x 15 noncompliant balloon was advanced into the ostial/proximal RCA. The lesion was predilated to 18 valencia. The noncompliant balloon was withdrawn and a Medtronic [place] 3.0 x 18 drug-eluting
stent was advanced. The stent was deployed at 12 atmospheres. The stent balloon was removed. The 3.0 x 15 noncompliant balloon was advanced into the stent and the stent was postdilated to 16 atmospheres. The noncompliant balloon was withdrawn and
a 3.5 x 12 noncompliant balloon was advanced. The proximal portion of the stent was postdilated to 16 valencia. The noncompliant balloon was withdrawn.
Angiography was performed in orthogonal views, confirming good stent expansion and an excellent angiographic result in the proximal RCA, but there was significant concern for an uncovered ostial lesion, particularly when the artery was viewed in the
KATHRIN caudal projection. The decision was made to extend the proximal stented margin into the ostium.
A Medtronic [place] 3.5 x 8 drug-eluting stent was advanced through the guiding catheter and into the proximal RCA. Meticulous care was taken while positioning the stent, ensuring that the distal margin of the stent was overlapping with the
proximal RCA stent while the proximal margin cover the ostium. When we were satisfied with this position, the stent was inflated. Through tension on the balloon shaft as well as the patient taking a deep breath, the stent became dislodged midway
through its inflation. The balloon was immediately deflated but not before the stent had made contact with the previous stent with approximately 1 cell of overlap and the remainder of the proximal stent protruding into the aorta. There was
significant dog boning of the stent with the proximal and distal margins expanded in the mid stent still relatively compressed. The stent balloon was pulled back and would not reinsert into the undeployed portion of the stent, though the stent
remained on the wire. We remove the stent balloon and a 1.5 x 12 semicompliant balloon was advanced over the wire, passing through the partially deployed stent into the RCA. The 1.5 x 12 balloon was inflated to 12 valencia, pinning the stent between
the guide and the inflated balloon but allowing for blood flow around this balloon.
At this point, CT surgery was called to the bedside in case there was need for urgent sternotomy for bypass and stent retrieval. After considering the situation, right common femoral access was obtained and the artery was preclosed with a Perclose
device. An 18 Trin[place] Cook sheath was advanced through the right common femoral artery into the descending aorta. A second 6 Trinidadian JR4 guiding catheter was advanced into the ascending aorta over the wire. An end snare was advanced through the
second JR4 and deployed in the ascending aorta. The we began to withdraw the stent using the inflated 1.5 x 12 balloon to pull it out of the ostium of the RCA. At this point, I was not convinced that the 1.5 x 12 balloon would provide an adequate
bumper to pin the stent especially with the force required to dislodge it from the ostium of the RCA. This balloon was deflated, pulled back into the stent then inflated to 10 valencia. The 1.5 x 12 balloon was then deflated and withdrawn and a 2.0 x
12 semicompliant balloon was advanced through the now partially dilated stent. Once the balloon was through the entire stent, it was inflated to 12 valencia and pulled back into the distal aspect of the stent while the guide was advanced to the proximal
aspect of the stent, essentially pinning the stent between the 2 devices. The entire radial apparatus was pulled back as 1 unit, successfully dislodging the 3.5 x 8 drug-eluting stent from the ostium of the right coronary. The power turn flex wire
was withdrawn from the coronary.
We attempted to advance the coronary wire through the ensnare, but we encountered significant difficulty getting the snare to grab the wire. The ensnare was withdrawn and a 20 mm gooseneck snare was advanced through the femoral JR4 guide. We
deployed the 20 mm in snare and the ascending aorta. We were then able to manipulate the wire and balloon through the gooseneck. The gooseneck snare was tightened, confirming that we now had proximal and distal control. Using this control, we
slowly withdrew the femoral guide while advancing the radial guide, allowing the union of the wire and snare to be moved into the descending aorta to mitigate embolic risk. We then released the snare on the wire and repositioned the snare on the
body of the partially deployed stent. When we were satisfied that the stent was firmly snared, we pulled the entire femoral guide and snare into the 18 Trin[place] Cook sheath. The stent was able to enter the sheath without issue. Once everything was
inside the sheath, the 2.0 x 12 balloon was deflated and withdrawn, freeing the stent to be pulled out through the Cook sheath. The 6 Trinidadian femoral guide and snare to stent were removed from the Cook sheath and discarded.
We then turned our attention back to the right coronary artery. The radial JR4 guiding catheter was withdrawn over a wire and readvanced through the femoral sheath. After cannulating the right coronary artery, nitroglycerin 100 mcg was given
intracoronary to assess for any degree of spasm. Unfortunately, this did not relieve any of the ostial stenosis. On further review, we believe that the ostium of the right coronary still needed to be treated. The power turn flex wire was advanced
into the right coronary artery again. The GuideLiner was advanced over the 2.0 x 12 semicompliant balloon and into the proximal RCA. With GuideLiner support, a 3.5 x 12 drug-eluting stent was advanced. The GuideLiner was withdrawn and the stent
was positioned at the ostium of the RCA. Meticulous care was taken while positioning the stent, ensuring that the entire ostium was covered with more than adequate overlap in the proximal RCA stent. The stent was deployed at 12 valencia. The stent
balloon was withdrawn.
Final angiography was performed in orthogonal views demonstrating good stent apposition and excellent angiographic result. The coronary wire was withdrawn and the guide was disengaged from the artery. The catheter was removed over a standard
J-wire.
Closure Device: Vascular band for the right radial artery, Perclose for the right common femoral artery.
Radiation (mGy): 1054.38
DAP (cm2.Gy): 77.0424
Fluoroscopy time (minutes): 40.9
Sedation time (minutes): 124
CONCLUSIONS
1. Right dominant circulation with a known, densely calcified, occlusive 50% left main coronary artery lesion (MLA 4.5 mm�), moderate diffuse disease in the proximal LAD with a 50% lesion in the distal/apical LAD, a 90% lesion in the proximal
margin of the left circumflex leading into the origin of OM1 and a hazy, densely calcified, 90% ostial/proximal RCA culprit lesion, status post successful intracoronary lithotripsy (shockwave 2.5 x 12 lithotripsy balloon) and PCI (overlapping
Medtronic [place] 3.0 x 18 JHONATHAN, 3.5 x 12 JHONATHAN) with reduction in stenosis to 0%, maintaining BRIANDA-3 flow.
2. Initial dislodgment of the ostial RCA stent with partial deployment requiring snare and retrieval through the right common femoral artery.
3. Normal filling pressures (LVEDP = 10 mmHg at 61.2 kg).
RECOMMENDATIONS:
1. Expectant management after cardiac catheterization via right radial and right femoral approach.
2. Limited weight bearing on the right wrist for one week.
3. Antithrombotic therapy with clopidogrel and rivaroxaban 15 mg daily.
4. Medical management of left-sided coronary disease with carvedilol and high-dose, high potency statin.
5. Guideline directed medical therapy as hemodynamics will tolerate.
6. Referral to cardiac rehab.
Copy to: Emani Garcia M.D., Dayne Byrd M.D.
Jey Brar DO, FACC, FACP
--- NOTE | 2024-06-18 17:58 | PTCARENOTE ---
Rec'd PT post cardiac cath at 1640, A,A+O, denies pain. R radial band D+I, + radial pulse, R femoral dsg D+I, +DP pulse.
[2024-06-18] MEDS: TYLENOL PO (20:14)
[2024-06-18] MEDS: LIPITOR 80 MG PO (20:21)
[2024-06-19 03:00] VITALS: BP 141/67
[2024-06-19 04:29] VITALS: BP 141/67
[2024-06-19 04:37] VITALS: BMI 20.6
[2024-06-19 04:39] LABS: Hematocrit 30.2 % (39.0-52.0); Hemoglobin 10.4 g/dL (13.0-18.0); Mean Corp Hgb Conc. 34.4 g/dL (33.0-37.0); Mean Platelet Volume 9.4 fL (7.4-10.4); Platelet Count 152 10^3/uL (130-400); Red Blood Cell Count 3.47 10^6/uL (4.70-6.10); Red Cell Dist. Width 13.2 % (11.5-14.5); White Blood Cell Count 4.9 10^3/uL (4.8-10.8)
--- NOTE | 2024-06-19 05:11 | PTCARENOTE ---
Rec'd pt at change of shift, pt on TLEE monitor in NSR / Sinus bradycardia VSS, and AAO*3. Pt post PCI with R radial site and R femoral artery site. Pt currently without R radial band (see flowchart). R femoral dressing changed twice d/t
saturation and hemostasis pad applied. Site soft upon palpation, no hematoma noted at this time. Manual pressure was held for ten minutes at 20:20 until 20:30, then new dressing was applied. Dressing currently CDI and PT aware of R upper and lower
limb restrictions. Pt agreed to report any bleeding to nursing staff. See post angio graft flowchart for monitoring and assessment. Pt denied any pain or discomfort. Pt resting with call duke in reach.
[2024-06-19 05:19] LABS: Blood Urea Nitrogen 21 mg/dl (9-20); Calcium 8.8 mg/dl (8.4-10.2); Carbon Dioxide 22 mmol/L (22-30); Chloride 101 mmol/L (98-107); Estimated Creatinine Clearance 49 ml/min; Glucose 84 mg/dl (70-99); Potassium 4.5 mmol/L (3.5-5.1); Sodium 134 mmol/L (135-145); eGFR > 60.00
--- NOTE | 2024-06-19 06:45 | W.PN.HOSP.TC ---
Today's Communication/Plan
-
f/w cardiology recommendations
DC planning
Assessment / Plan
Assessment / Plan
Physical Exam
General: No Apparent Distress
HEENT: PERRLA
Respiratory: Clear; No Wheezes
Cardiac: S1/S2 and Regular Rhythm
GI: Soft and Non Tender
Musculoskeletal: No Edema
Skin: Warm and Dry; No Rash
Neuro: AO x 3
Psych: Calm
Mr. Les Gunter is a 83 yo man with hx TIA, paroxysmal afib on Xarelto, essential HTN, HLD presents to the ER with several days of upper abdominal pain and nausea.
# NSTEMI status post cardiac catheterization 06/16 showing multivessel coronary artery disease
-No pain in chest or abdomen
s/p Cath on 06/18 with intracoronary lithotripsy and densely calcified ostial RCA lesion with PCI of 90% proximal RCA & ostial RCA
Was evaluated by CT surgery, recommended PCI stenting options
s/p heparin gtt, ASA 324
- Started Coreg
On Plavix post Cath
-new started Lipitor 40mg PO, LDL 80
-Held Xarelto
- Right groin is no swelling or tenderness.
-nitro PRN
Appreciate cardiology and CT help
#GERD
- Protonix
-Maalox PRN
# Incidental finding of possible fat necrosis in chronic ventral hernia
No local tenderness
No clinical signs of incarceration or inflammation
c/w monitoring only
# Hx of hyponatremia, c/w regular diet
Pt tends to have low sodium, was hospitalized for hyponatremia before
#Paroxysmal atrial fibrillation on Xarelto last dose 06/15/2024, and flecainide
c/w BB
DVT Prophylaxis.
FULL CODE - discussed on admission
Total discharge time spent to see the patient on the floor, examine the patient, review data and lab results, discuss discharge plan with patient, nursing staff around 65 minutes
Anticipated Discharge: Today
Subjective/Interval History
-
Date of Service: June 19, 2024
No chest pain
No sob
Objective Data
-
Labs:
Laboratory Results
06/19/24
04:26
WBC 4.9
Hgb 10.4 L
Hct 30.2 L
Plt Count 152
Sodium 134 L
Potassium 4.5
Chloride 101
Carbon Dioxide 22
BUN 21 H
Creatinine 1.0
Glucose 84
Calcium 8.8
Vital Signs:
Vital Signs
Temp Pulse Resp BP Pulse Ox
97.7 F 56 16 141/67 99
06/19/24 03:00 06/19/24 06:00 06/19/24 03:00 06/19/24 04:29 06/19/24 03:00
I&O
06/17/24 06/18/24 06/19/24
06:59 06:59 06:59
Intake Total 700 / 700
Output Total 975 / 975 400 / 400
Balance -975 / -975 300 / 300
[2024-06-19 06:53] VITALS: BP 148/75
[2024-06-19] MEDS: PROTONIX 40 MG PO (08:05)
--- NOTE | 2024-06-19 08:33 | W.PN.CD ---
Addendum entered and electronically signed by Kassidy Myers MD 06/19/24 12:34:
I personally evaluated and examined the patient. I agree with the assessment and documentation, examination and plan of care as noted below.
Briefly, 83-year-old gentleman with paroxysmal atrial fibrillation, PAT and hypertension and TIA who was admitted with NSTEMI. Patient underwent RCA revascularization. The dislodged stent was retrieved and new stent was deployed with excellent
results. Patient is stable and feeling better. Patient can be discharged with the plan for revascularization of left main and left circumflex as a later date.
Given patient's coronary disease, flecainide is not appropriate drug for him. Continue Xarelto for stroke prevention. Can consider ablation as an outpatient once revascularization is complete.
Original Note:
Today's Communication / Plan
-
Resume rivaroxaban this evening. Stop ASA.
Impression / Plan
-
Impression/Plan: 83M with paroxysmal atrial fibrillation (flecainide and rivaroxaban), paroxysmal atrial tachycardia, hypertension, dyslipidemia, and prior TIA (2021) admitted with NSTEMI.
#NSTEMI, Acute.
-Exertional epigastric pain, none at rest.
-Troponin peaked at 0.230.
-Septal Q waves on EKG.
-Thorough discussion with CT surgery and the patient, we will plan to proceed with PCI of the ostial RCA as this is the culprit lesion. LMCA/LCx disease will be managed medically.
-If he has angina after RCA revascularization, we can consider a high risk LMCA/LCx PCI at a later date.
-Status post intracoronary lithotripsy and densely calcified ostial RCA lesion with PCI of 90% pRCA & ostial RCA
-The plan is clopidogrel 75 mg and rivaroxaban 15 mg daily
-Continue carvedilol and atorvastatin.
#Paroxysmal atrial fibrillation
-Currently in NSR.
-D/C flecainide given CAD.
-Rate control with carvedilol.
-[id number]: Score at least 6 (HTN, age 75 or more, prior Stroke/TIA, Vascular disease).
-Oral Anticoagulation: Rivaroxaban 15 mg (creatinine clearance <50)
#Aortic stenosis, mild (12/7 mmHg, 1.9 cm�)
#Mild to moderate mitral regurgitation
#Ventral Hernia
-New diagnosis.
-CT suggests possible fat necrosis/incarceration.
-Patient denies abdominal pain. Initially it was unclear if this was causing his admission pain, but it appears separate.
-General surgery evaluated - input appreciated.
-Conservative management at this time.
#HTN
-Not previously treated.
-Tolerating carvedilol.
#Dyslipidemia
-Chronic.
-Start atorvastatin 80mg.
#Prior TIA
-Remote (2021).
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
#Dispo
-IVU status.
-Full Code.
-Discharge planning
Milk Pickup Truck Driver: Dr. Centeno
Subjective/Interval History:
Cardiac catheterization yesterday, as below.
Right radial artery and right common femoral without hematoma.
DATA:
Cardiac catheterization, 06/18/2024:
1. Right dominant circulation with a known, densely calcified, occlusive 50% left main coronary artery lesion (MLA 4.5 mm�), moderate diffuse disease in the proximal LAD with a 50% lesion in the distal/apical LAD, a 90% lesion in the proximal
margin of the left circumflex leading into the origin of OM1 and a hazy, densely calcified, 90% ostial/proximal RCA culprit lesion, status post successful intracoronary lithotripsy (shockwave 2.5 x 12 lithotripsy balloon) and PCI (overlapping
Medtronic [place] 3.0 x 18 JHONATHAN, 3.5 x 12 JHONATHAN) with reduction in stenosis to 0%, maintaining BRIANDA-3 flow.
2. Initial dislodgment of the ostial RCA stent with partial deployment requiring snare and retrieval through the right common femoral artery.
3. Normal filling pressures (LVEDP = 10 mmHg at 61.2 kg).
Cardiac Catheterization, 06/16/2024:
CONCLUSIONS
1. Right dominant circulation with a densely calcified, hazy, 90% lesion in the ostium of the RCA, and occlusive, densely calcified, 50% lesion in the proximal to mid section of the left main coronary artery (MLA = 4.5 mm�), moderate disease in the
proximal LAD and a 90% lesion in the proximal margin of the circumflex leading into the origin of OM1.
2. Normal filling pressures (LVEDP = 8 mmHg at 66.1 kg).
CT Abdomen/Pelvis, 06/16/2024:
IMPRESSION:
Moderate colonic stool burden, possible constipation. There is a 1.0 cm segment of circumferential bowel wall thickening along the distal descending colon which may be due to underdistention however underlying malignancy cannot be excluded. Consider
follow-up colonoscopy.
Colonic diverticulosis without evidence of acute diverticulitis.
There is a fat-containing ventral hernia in the upper anterior midline abdominal wall with fat stranding in the hernia sac, possible fat necrosis in the setting of incarceration. Recommend clinical correlation.
Fat-containing left inguinal hernia.
TTE, 06/17/2024:
CONCLUSIONS
Normal biventricular size and systolic function.
Mild hypokinesis of the mid anteroseptal wall.
Moderate concentric left ventricular hypertrophy.
Mild to moderate mitral regurgitation.
Mild aortic stenosis.
Mild aortic regurgitation.
No prior study available for comparison.
Physical Exam
Vital Signs/Labs
Vital Signs
Temp Pulse Resp BP Pulse Ox
97.7 F 60 16 148/75 98
06/19/24 03:00 06/19/24 07:00 06/19/24 06:51 06/19/24 06:53 06/19/24 06:51
06/18/24 06/19/24 06/20/24
06:59 06:59 06:59
Actual Weight 61.6 kg 64.1 kg
06/19/24 04:26
06/19/24 04:26
APTT 94.2 Sec (23.4-35.0) H 06/18/24 03:38
Triglycerides 55 mg/dl (10-149) 06/17/24 03:08
LDL Cholesterol, Calc 80 mg/dl 06/17/24 03:08
VLDL Cholesterol, Calc 11 mg/dl (0-30) 06/17/24 03:08
HDL Cholesterol 51 mg/dl 06/17/24 03:08
LAB Results
06/16/24 06/16/24 06/16/24
10:48 15:30 16:38
Troponin I 0.170 H* Cancelled 0.181 H*
06/16/24 06/16/24 06/17/24
17:00 22:03 10:25
Troponin I Cancelled 0.230 H* D 0.228 H*
06/17/24 06/17/24
14:00 20:00
Troponin I Cancelled Cancelled
Physical Exam
Constitutional: No acute distress and Comfortable
EENT: Anicteric and Moist mucous membranes
Cardiovascular: Rhythm & rate is regular, Pedal edema is absent and S1S2 is normal
Respiratory: Respiratory effort normal and Lungs clear to auscul.
GI: Soft, Distention absent, Flat, Non tender and Normal bowel sounds
Neuro/Psych: AO x 3
Other: Skin (Warm and dry) and Cath Site (Right radial site without hematoma. Right femoral soft with dressing C/D/I)
Data Reviewed
-
Date of Service: June 19, 2024
[2024-06-19] MEDS: PLAVIX 75 MG PO (09:24)
[2024-06-19] MEDS: LOW STRENGTH ASPIRIN 81 MG PO (09:24)
[2024-06-19] MEDS: COREG 3.125 MG PO (09:24)
[2024-06-19] MEDS: TYLENOL 1000 MG PO (09:24)
[2024-06-19] MEDS: METAMUCIL, KONSYL 1 PACKET PO (09:24)
[2024-06-19 12:16] VITALS: BP 149/62
[2024-06-19] MEDS: FLUAD (65 yr+) 2024-2025 FORMULA 0.5 ML IM (13:10)
--- NOTE | 2024-06-19 13:56 | PTCARENOTE ---
Pt seen by Avel and Louis. Telemetry and IV devices removed. Discharge instructions reviewed with pt and his regarding activity and driving guidelines, wound care, medications and their actions and possible side effects, reporting cares
and concerns and follow up appt's. Very good understanding taught back to this RN. Pt escorted out via wheelchair and discharged to home.
--- NOTE | 2024-06-19 14:22 | W.DCSUMMARY ---
Discharge Summary
Discharge Data
Date of Admission: 06/16/24
Date of Discharge: 06/19/24
-
Pending Results: No
Hospital Course
83 years old male presented with exertional shortness of breath and upper abdominal/lower chest discomfort at times. Patient was diagnosed with non-ST elevation myocardial infarction with positive troponin. 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
He underwent cardiac catheterization that showed significant coronary artery disease. Sales [employer] Support [employer] Agent requested cardiothoracic surgery evaluation for possible bypass surgery. Upon evaluation of the patient, he was found to be high risk and
recommended revascularization through catheterization. Patient underwent cardiac catheterization and had right coronary artery angioplasty ( dislodged stent was retrieved and new stent was deployed with excellent results). Patient tolerated the
procedure well. He did not have hypotension. Patient remained hemodynamically stable and was discharged home in a stable condition. He was given prescription of Plavix. Xarelto was resumed.
Discharge Plan
-
Patient Disposition: Home (Routine Discharge)
Discharge Diagnosis/Procedures: Non-ST elevation myocardial infarction status post angioplasty, lithotripsy and stent to RCA x [address] Brar on 06/18/24.
Paroxysmal atrial fibrillation
Diet: Low Fat
Driving Restrictions: No driving for 24 hours
Other Services: Cardiac Rehab
Stand Alone Forms: DC Instructions- Cath/EP Lab
Referrals:
[facility]. Cardiac Rehab [Outside] - 07/28/24 9:30 am
(Cardiac Rehab Orientation appointment and� First Exercise appointment is on 07/28/24 9:30am.
The Cardiac Rehab gym is located on the first floor of the [facility].)
Sanchez Anguiano MD [Non-Admitting Privileges] - in two to four weeks
Emnai Garcia MD [Primary Care Provider] -
Prescriptions:
New
atorvastatin 80 mg Tablet
80 mg PO QPM Qty: 30 0RF
clopidogrel 75 mg Tablet
75 mg PO DAILY Qty: 30 0RF
carvedilol 3.125 mg Tablet
3.125 mg PO BID Qty: 60 0RF
nitroglycerin 0.4 mg Tablet, Sublingual
0.4 mg sublingual [id number] PRN (Reason: chest pain) Qty: 10 0RF
Continued
pantoprazole [Protonix] 40 mg Tablet,Delayed Release (Dr/Ec)
40 mg PO DAILY
psyllium Packet
1 packet PO DAILY
therapeutic multivitamin Tablet
1 tab PO DAILY
acetaminophen [Tylenol Extra Strength] 500 mg Tablet
1,000 mg PO BID
ascorbic acid (vitamin C) [Vitamin C] 500 mg Tablet
500 mg PO DAILY
Xarelto 15 mg Tablet
15 mg PO QPM
Discontinued
flecainide 50 mg Tablet
50 mg PO Q12H
Discharge Orders:
Discharge Patient (As Directed); Ordered 06/19/24
Ordered By: Ramesh Reilly
Care Plan Goals
Care Plan Goals:
Problem: Readiness for enhanced knowledge related to diagnosis and treatment plan
Goal: Understand your diagnosis and treatment plan needs, including medications if applicable.
Instructions: Know your diagnosis, underlying causes and treatment plan options, including medications if applicable. Consult with your health care team to learn about your diagnosis and treatment plan, including medications if applicable.
Discharge Date and Time
Discharge Date/Time: 06/19/24 14:00
Print Language: TAJIK
== END 2024-06-19 14:00 | disposition home or self-care (01) | DRG 324 ==
LOC: IVU 13:12
PROVIDERS: Internal Medicine Cardiovascular Disease; Physician Assistant Medical; ADMITTING PHYSICIAN Student in an Organized Health Care Education/Training Program; ATTENDING PHYSICIAN Internal Medicine; CONSULT PHYSICIAN Internal Medicine Cardiovascular Disease; CONSULT PHYSICIAN Surgery; CONSULT PHYSICIAN Thoracic Surgery (Cardiothoracic Vascular Surgery); EMERGENCY PHYSICIAN Student in an Organized Health Care Education/Training Program; PRIMARYCARE PHYSICIAN Internal Medicine
PROC: B2111ZZ Fluoroscopy of Multiple Coronary Arteries using Low Osmolar Contrast (ICD-10-PCS; 2024-06-16)
PROC: B241ZZ3 Ultrasonography of Multiple Coronary Arteries, Intravascular (ICD-10-PCS; 2024-06-16)
PROC: 4A023N7 Measurement of Cardiac Sampling and Pressure, Left Heart, Percutaneous Approach (ICD-10-PCS; 2024-06-16)
PROC: 02F03ZZ Fragmentation in Coronary Artery, One Artery, Percutaneous Approach (ICD-10-PCS; 2024-06-18)
PROC: 027035Z Dilation of Coronary Artery, One Artery with Two Drug-eluting Intraluminal Devices, Percutaneous Approach (ICD-10-PCS; 2024-06-18)
PROC: 3E02340 Introduction of Influenza Vaccine into Muscle, Percutaneous Approach (ICD-10-PCS; 2024-06-19)
DX: I21.4 Non-ST elevation (NSTEMI) myocardial infarction (principal); I47.19 Other supraventricular tachycardia; E78.00 Pure hypercholesterolemia, unspecified; I48.0 Paroxysmal atrial fibrillation; I10 Essential (primary) hypertension; I25.10 Atherosclerotic heart disease of native coronary artery without angina pectoris; K43.9 Ventral hernia without obstruction or gangrene; K59.00 Constipation, unspecified; K57.30 Diverticulosis of large intestine without perforation or abscess without bleeding; K21.9 Gastro-esophageal reflux disease without esophagitis; Z96.611 Presence of right artificial shoulder joint; Z79.01 Long term (current) use of anticoagulants; Z86.73 Personal history of transient ischemic attack (TIA), and cerebral infarction without residual deficits; Z90.49 Acquired absence of other specified parts of digestive tract; Z88.1 Allergy status to other antibiotic agents; Z86.16 Personal history of COVID-19; Z23 Encounter for immunization
CPT/HCPCS: 37197; 74177; 80048; 80053; 80061; 81003; 83036; 83690; 84484; 85027; 85347; 85730; 86850; 86900; 86901; 90662; 92972; 92978; 93005; 93306; 93458; 96365; 96366; 99291; C1725; C1753; C1760; C1761; C1874; C1894; C9600; G0008; Q9967

== ENCOUNTER 2024-09-09 14:35 | Emergency (ER) | payer MEDICARE, SELFPAY ==
[2024-09-09 14:45] VITALS: BP 153/72
--- NOTE | 2024-09-09 14:48 | ED.GENMED ---
ED Provider Triage
<SHANAE Bustillo - Last Filed: 09/09/24 14:51>
-
Patient seen by provider in Triage?: Seen in Triage
Attestation: A medical screening examination has been initiated by a qualified medical provider. Based on the assessment performed at this time, it has been determined that an emergent medical condition may exist and the patient has been informed
that further medical evaluation and possible additional diagnostic testing may be needed.
HPI: 84-year-old male sent by family doctor for weakness and for low HGB/HCT and low sodium . Pt is on Plavix. Pt had blood work done .
Denies fever/chills. Stool is brown
GENERAL: Alert , in no apparent distress
EYE: No visual abnormalities.
NECK: Trachea midline
ENT: No visible abnormalities.
LUNGS: No acute respiratory distress
NEUROLOGICAL: Alert and oriented
SKIN: Skin intact. No visible changes.
MUSCULOSKELETAL: Moving extremities normally
PSYCH: Normal and appropriate interaction.
This is a medical evaluation conducted in person to initiate diagnostic evaluation and provide initial therapeutics. Please see further documentation by the treating clinician.
History of Present Illness
<SHANAE Bustillo - Last Filed: 09/09/24 14:51>
General
Chief Complaint: Weakness
Time Seen by Provider: 09/09/24 18:45
<SHANAE Leo - Last Filed: 09/09/24 19:55>
General
Source: patient
Exam Limitations: none
History of Present Illness
History of Present Illness:
This is a 84 year old male that comes in with c/o abnormal labs. States that his PCP called him and told him to come to the ER. States that he has blood work done on Friday and his Hgb was low and his sodium so she told him to come in. Denies any
fever, chills, chest pain, SOB, abd pain, nausea, vomiting, diarrhea, headache, dizziness, urinary burning.
Past History
<SHANAE Bustillo - Last Filed: 09/09/24 14:51>
Past History
ED Past Medical History: Arrthythmia, GERD, HTN and Hypercholesterolemia
ED Past Surgical History: Appendectomy, Orthopedic and Tonsilectomy
Social History
Tobacco: Non-smoker
Alcohol: None
Drug: None
Personal:
Living: with family
<SHANAE Leo - Last Filed: 09/09/24 19:55>
Past History
ED Past Medical History: Arrthythmia (Atrial fib), Asthma, GERD, HTN, Hypercholesterolemia, [place] and Other (TIA, Barretts esophagus, Anemia, Hiatal hernia, )
ED Past Surgical History: Appendectomy, Cardiac (Stents X 2), Orthopedic (Carpal tunnel release right, Bilateral knee surgery, Right shoulder surgery, ) and Other (Cataracts)
Social History
Alcohol: Occasional
Review of Systems
<SHANAE Leo - Last Filed: 09/09/24 19:55>
Review of Systems
All Other Systems: ROS reviewed and negative except as documented in HPI and ROS
Constitutional: Reports no symptoms; Denies fever or chills
EENT: Reports no symptoms
Respiratory: Reports no symptoms; Denies cough or trouble breathing
Cardiac: Reports no symptoms; Denies chest pain
ABD/GI: Reports no symptoms; Denies abdominal pain, nausea, vomiting or diarrhea
: Reports no symptoms; Denies dysuria, frequency or urgency
Musculoskeletal: Reports no symptoms
Skin: Reports no symptoms
Neurological: Reports no symptoms; Denies dizzy or headache
Psychiatric: Reports no symptoms
Phy Exam
<SHANAE Leo - Last Filed: 09/09/24 19:55>
General Physical Exam
General Presentation: well appearing and no apparent distress
General age: appears stated age
General Skin: warm and dry
General Habitus: elderly
General Mental: alert
General Hydration: appears well hydrated
ENT Exam
ENT Exam: TM's normal, pharynx normal and neck supple
Eye Exam
Eye Exam: EOMI
Cardiovascular Exam
Cardiovascular Exam: regular rate/rhythm, no edema and normal peripheral pulses
Pulmonary Exam
Pulmonary Exam: lungs clear, no respiratory distress, no rales, chest non tender, no crackles, no rhonchi, no wheezing and no cough
Gastrointestinal Exam
Gastrointestinal Exam: normal bowel sounds, non tender, soft, no organomegaly, no pulsatile mass, non distended and other (Stool brown very slight hem positive, (patient states that he occasionally has bright red blood on his Toilet paper))
Musculoskeletal Exam
Musculoskeletal Exam: full ROM and no edema
Skin Exam
Skin Exam: normal color, warm/dry, no rash and no petechia
Psychiatric Exam
Psychiatric Exam: normal mood/affect
Course
<SHANAE Bustillo - Last Filed: 09/09/24 14:51>
Orders/Labs/Results
Orders:
Orders
09/09/24 14:51
IV Insert/Care/Rem.- Treatment PRN
09/09/24 15:06
Type+Screen Urgent
Complete Blood Count/With Diff Urgent
Comprehensive Metabolic Panel Urgent
Abnormal Lab Results
09/09/24
15:06
RBC 3.16 L 10^6/uL
(4.70-6.10)
Hgb 9.6 L g/dL
(13.0-18.0)
Hct 28.4 L %
(39.0-52.0)
Abs Immat Gran (auto) 0.1 H 10^3/uL
(0-0.05)
Absolute Lymphs (auto) 0.7 L 10^3/uL
(1.2-3.4)
Immature Gran % 1.1 H %
(0-0.5)
Lymphocytes % 13.6 L %
(20.5-51.1)
Sodium 128 L mmol/L
(135-145)
Chloride 93 L mmol/L
(98-107)
Glucose 107 H mg/dl
(70-99)
Alkaline Phosphatase 548 H U/L
(38-126)
09/09/24 15:06
09/09/24 15:06
Vital Signs
Initial and Last Documented VS:
Initial Vital Signs
Temp Pulse Resp BP Pulse Ox
98.4 F 86 18 153/72 98
09/09/24 14:45 09/09/24 14:45 09/09/24 14:45 09/09/24 14:45 09/09/24 14:45
Last Documented Vital Signs
Temp Pulse Resp BP Pulse Ox
97.4 F 62 16 128/59 100
09/09/24 15:52 09/09/24 15:52 09/09/24 15:52 09/09/24 15:52 09/09/24 15:52
<SHANAE Leo - Last Filed: 09/09/24 19:55>
Orders/Labs/Results
Orders:
Orders
09/09/24 14:51
IV Insert/Care/Rem.- Treatment PRN
09/09/24 15:06
Type+Screen Urgent
Complete Blood Count/With Diff Urgent
Comprehensive Metabolic Panel Urgent
Abnormal Lab Results
09/09/24
15:06
RBC 3.16 L 10^6/uL
(4.70-6.10)
Hgb 9.6 L g/dL
(13.0-18.0)
Hct 28.4 L %
(39.0-52.0)
Abs Immat Gran (auto) 0.1 H 10^3/uL
(0-0.05)
Absolute Lymphs (auto) 0.7 L 10^3/uL
(1.2-3.4)
Immature Gran % 1.1 H %
(0-0.5)
Lymphocytes % 13.6 L %
(20.5-51.1)
Sodium 128 L mmol/L
(135-145)
Chloride 93 L mmol/L
(98-107)
Glucose 107 H mg/dl
(70-99)
Alkaline Phosphatase 548 H U/L
(38-126)
09/09/24 15:06
09/09/24 15:06
H/H slightly low. Hyponatremia. Chloride low. Glucose nonfasting. Alk phos elevation.
Vital Signs
Initial and Last Documented VS:
Initial Vital Signs
Temp Pulse Resp BP Pulse Ox
98.4 F 86 18 153/72 98
09/09/24 14:45 09/09/24 14:45 09/09/24 14:45 09/09/24 14:45 09/09/24 14:45
Last Documented Vital Signs
Temp Pulse Resp BP Pulse Ox
97.4 F 62 16 128/59 100
09/09/24 15:52 09/09/24 15:52 09/09/24 15:52 09/09/24 15:52 09/09/24 15:52
<SHANAE Leo - Last Filed: 09/09/24 19:55>
MDM/Problems Addressed
Differential Diagnosis Includes:
Hyponatremia.
MDM/Problems Addressed:
This is a 84 year old male that comes in with c/o abnormal labs. States that he has a low Hgb and sodium and his PCP told him to come in.
Patient had blood work done. Explained that his hgb is slightly low but would not give blood for 9.6. Patient questioned about CT done in June. This was reviewed and patient needs to follow up with the GI specialist for a Colonoscopy. Patient
states that his GI specialist will not do a Colonoscopy due to his age. Rectal exam is slightly hem positive. Patient states that he occasionally has bright red blood very little when he wipes. Encouraged patient to eat canned soup and boxed food to
help increased his Sodium. Patient states that he is ready to go home. WIll give out patient slip for repeat labs on Friday. Patient to return with any concerns.
Chronic conditions affecting care:
NA
Acute Exacerbation and/or Progression of Chronic Illness:
NA
<SHANAE Leo - Last Filed: 09/09/24 19:55>
*Pulse Oximetry
Patient hypoxic: no
*EKG
Interpreted by ED Provider?: NA
Rate: EKG- N/A
*Quality Management Nurse Interpretation
Rate: Quality Management Nurse- N/A
*Critical Care Note
Total Time (30-74mins, 75-104mins- exclusive of procedures): Not Applicable
ED Attending Note
<SHANAE Bustillo - Last Filed: 09/09/24 14:51>
-
Portions of this chart may have been created with voice recognition software.� Occasional wrong word or��sound alike� substitutions may have occurred due to the inherent limitations of voice recognition software.
Discharge Plan
Departure
Patient Disposition: Home (Routine Discharge)
Date of Disposition: 09/09/24
Time of Disposition: 19:51
Patient with high blood pressure during this ER visit?: No
Condition: Good
Covid-19: Not Applicable
Discharge Problem:
Hyponatremia
Instructions: Hyponatremia
Prescriptions:
No Action
pantoprazole [Protonix] 40 mg Tablet,Delayed Release (Dr/Ec)
40 mg PO DAILY
psyllium Packet
1 packet PO DAILY
therapeutic multivitamin Tablet
1 tab PO DAILY
acetaminophen [Tylenol Extra Strength] 500 mg Tablet
1,000 mg PO BID
ascorbic acid (vitamin C) [Vitamin C] 500 mg Tablet
500 mg PO DAILY
Xarelto 15 mg Tablet
15 mg PO QPM
atorvastatin 80 mg Tablet
80 mg PO QPM Qty: 30 0RF
clopidogrel 75 mg Tablet
75 mg PO DAILY Qty: 30 0RF
carvedilol 3.125 mg Tablet
3.125 mg PO BID Qty: 60 0RF
nitroglycerin 0.4 mg Tablet, Sublingual
0.4 mg sublingual [id number] PRN (Reason: chest pain) Qty: 10 0RF
Referrals:
Emani Garcia MD [Family Provider] - Call in 1-3 days for appt
Activity Restrictions/Additional Instructions:
As discussed, your Hgb is 9.6. This is low but at this level you do not need any blood products. Your Sodium is slightly. Please try eating come canned soup or boxed food that his high in sodium. Pretzels or your Gatorade. You have been given an
out patient slip for repeat labs on Friday. IF YOU HAVE WEAKNESS, DIZZINESS, OR YOU HAVE ANY OTHER CONCERNS PLEASE RETURN TO THE EMERGENCY ROOM.
Interventions
Interventions:
*Risk Screen - Suicide Last Done: 09/09/24 14:45
*General Assessment Last Done: 09/09/24 14:45
*Neglect/Abuse Screening Last Done: 09/09/24 14:45
*ED COVID-19 Vaccine History Last Done: 09/09/24 19:03
ED- Cardiac Assessment Last Done: 09/09/24 19:03
ED- Neurological Assessment Last Done: 09/09/24 19:03
ED- Pulmonary Assessment Last Done: 09/09/24 19:03
Discharge Date and Time
Print Language: CAPE VERDEAN
[2024-09-09 15:36] LABS: % Basophils 0.4 % (0-2); % Eosinophils 2.8 % (0-6); % Immature Granulocytes 1.1 % (0-0.5); % Lymphocytes 13.6 % (20.5-51.1); % Monocytes 8.2 % (1.7-9.3); % Neutrophils 73.9 % (42.2-75.2); Absolute Eosinophils 0.2 10^3/uL (0-0.7); Absolute Immature Granulocytes 0.1 10^3/uL (0-0.05); Absolute Lymphocytes 0.7 10^3/uL (1.2-3.4); Absolute Monocytes 0.4 10^3/uL (0.1-0.6); Hematocrit 28.4 % (39.0-52.0); Hemoglobin 9.6 g/dL (13.0-18.0); Mean Corp Hgb Conc. 33.8 g/dL (33.0-37.0); Mean Corpuscular Hgb 30.4 pg (27.0-31.0); Mean Corpuscular Volume 89.9 fL (80.0-94.0); Mean Platelet Volume 9.1 fL (7.4-10.4); Nucleated Red Blood Cells % 0 % (-); Platelet Count 240 10^3/uL (130-400); Red Blood Cell Count 3.16 10^6/uL (4.70-6.10); Red Cell Dist. Width 13.5 % (11.5-14.5); White Blood Cell Count 5.4 10^3/uL (4.8-10.8)
[2024-09-09 15:49] LABS: ALT (SGPT) 50 U/L (0-50); AST (SGOT) 54 U/L (17-59); Albumin 3.8 g/dl (3.5-5.0); Alkaline Phosphatase 548 U/L (38-126); Blood Urea Nitrogen 14 mg/dl (9-20); Carbon Dioxide 26 mmol/L (22-30); Chloride 93 mmol/L (98-107); Glucose 107 mg/dl (70-99); Potassium 4.7 mmol/L (3.5-5.1); Sodium 128 mmol/L (135-145); Total Bilirubin 0.5 mg/dl (0.2-1.3); Total Protein 6.4 g/dl (6.3-8.2); eGFR > 60.00
[2024-09-09 15:52] VITALS: BP 128/59
[2024-09-09 19:03] VITALS: BMI 22.0
[2024-09-09 19:04] VITALS: BP 184/66
== END 2024-09-09 20:01 | disposition home or self-care (01) ==
LOC: EMR 14:35
PROVIDERS: Nurse Practitioner; EMERGENCY PHYSICIAN Emergency Medicine; FAMILY PHYSICIAN Internal Medicine
DX: E87.1 Hypo-osmolality and hyponatremia (principal)
CPT/HCPCS: 99283; 80053; 85025; 86850; 86900; 86901

== ENCOUNTER 2025-07-03 19:14 | Emergency (ER) | payer MEDICARE, SELFPAY ==
[2025-07-03 19:22] VITALS: BP 124/73
[2025-07-03 19:46] VITALS: BMI 20.9
--- NOTE | 2025-07-03 19:55 | ED.GENMED ---
History of Present Illness
General
Chief Complaint: Skin Surface Trauma
Source: patient
Exam Limitations: none
Time Seen by Provider: 07/03/25 19:40
History of Present Illness
History of Present Illness:
See MDM
Past History
Past History
ED Past Medical History: Arrthythmia (Atrial fib), Asthma, GERD, HTN, Hypercholesterolemia, [place] and Other (TIA, Barretts esophagus, Anemia, Hiatal hernia, )
ED Past Surgical History: Appendectomy, Cardiac (Stents X 2), Orthopedic (Carpal tunnel release right, Bilateral knee surgery, Right shoulder surgery, ), Tonsilectomy and Other (Cataracts)
Social History
Tobacco: Non-smoker
Alcohol: Occasional
Drug: None
Personal:
Living: with family
Phy Exam
Physical Exam
Physical Exam:
See MDM
Course
Orders/Labs/Results
Orders:
Orders
07/03/25 19:26
CT Orbits W/o Iv Contrast Urgent
Comment:
Reason For Exam: fall hit right orbit
Cervical Spine wo Contrast CT [CT Cervical Spine W/o Iv Contr] Urgent
Comment:
Reason For Exam: fall on hit head on thinners
Head wo Contrast CT [CT Head W/o Iv Contrast] Urgent
Comment:
Reason For Exam: hit head on thinners
Vital Signs
Initial and Last Documented VS:
Initial Vital Signs
Temp Pulse Resp BP Pulse Ox
98.9 F 82 16 124/73 98
07/03/25 19:22 07/03/25 19:22 07/03/25 19:22 07/03/25 19:22 07/03/25 19:22
Last Documented Vital Signs
Temp Pulse Resp BP Pulse Ox
98.9 F 77 14 137/77 98
07/03/25 19:22 07/03/25 21:00 07/03/25 21:00 07/03/25 21:00 07/03/25 20:45
Procedures
Laceration Closure
Right Lateral Eye brow:
Status of Wound: clean
Size of Wound in cm: 2.5
Description of Wound Edges: sharp
Preparation: cleaned with soap & water
Anesthesia: 1% Lidocaine with epi
Revision/Debridement: routine- no revision
Wound exploration: explored to base- no FB
Type of Closure: single layer closure
Skin Closure Material: 4-0 nylon
Number of sutures: 3
MDM/Problems Addressed
Differential Diagnosis Includes:
Note:
CHIEF COMPLAINT(S)
Head laceration.
HISTORY OF PRESENT ILLNESS
The patient is an 84-year-old male who presents with a head laceration after tripping over a toy. The incident occurred at home where he fell and hit the right side of his head. He reports the fall resulted in a laceration and a notable bump on the
head. The patient denies any blurry vision. Physical examination reveals a small laceration located lateral to his right eyebrow. The eye itself appears intact and uninjured. The patient can see and focus without vision impairment.
PHYSICAL EXAM
General: Alert, no acute distress.
Skin: Warm, dry.
Head: Bruising and swelling noted to right lateral forehead and right upper eyelid. 2.5 cm laceration to right lateral eyebrow. Extraocular motion intact. Pupil reactive
Neck: Appears supple, trachea midline.
Eyes, Ears, Nose, Mouth, and Throat: Moist mucous membranes
Cardiovascular: No signs of cyanosis
Respiratory: Respirations are non-labored.
Abdomen: Non-distended
Musculoskeletal: No deformities
Neurological: No focal neurological deficit observed.
Psychiatric: Cooperative, appropriate mood and affect.
PLAN
Administer numbing medication to the laceration site and apply several stitches to close the wound.
DIFFERENTIAL DIAGNOSIS
The Differential Diagnosis includes, in no particular order and is not limited to:
- Scalp laceration
- Contusion
- Concussion
- Orbital fracture
- Eye injury
- Hematoma
- Subdural hematoma
- Intracranial hemorrhage
- Facial fractures
- Post-traumatic headache
MEDICAL DECISION MAKING
- Complexity of Data Reviewed: Chronic conditions affecting care
-Data:
Category 1: Tests and documents
- Physical examination of head laceration and potential eye injury.
Category 3: Discussion of management with other healthcare providers
SUMMARY OF ENCOUNTER
The patient, an 84-year-old male, presented to the emergency department due to a mechanical fall, which resulted in a head laceration. Given the patients age and mechanism of injury, a CT scan of the head and orbits, and cervical spine was
performed, which showed no acute pathology. The laceration was repaired with three stitches, and ice was applied to the area to reduce swelling. The patient was comfortable and ready for discharge after discussing return precautions.
DISPOSITION
Discharge.
ASSESSMENT
The patient experienced a scalp laceration and contusion of the face secondary to a mechanical fall.
EMERGENCY TREATMENTS ADMINISTERED
The laceration was treated with three stitches, and ice was applied to the affected area.
PATIENT EDUCATION AND COUNSELING
Return precautions were discussed with the patient to ensure he knows when to seek further medical attention.
MEDICATION RECONCILIATION
None were prescribed during the visit or upon discharge.
MEDICAL DECISION MAKING
- Number and Complexity of Problems Addressed: Chronic conditions affecting care due to age-related risks. Differential diagnosis includes scalp laceration, contusion, concussion, orbital fracture, eye injury, hematoma, subdural hematoma,
intracranial hemorrhage, facial fractures, and post-traumatic headache.
- Data:
- Category 1: Tests and documents: A CT scan of the head and orbits and cervical spine was independently reviewed and interpreted, showing no acute pathology.
-Risk:
Consideration of Admission/Observation: Escalation of care including admission/observation was considered given the complexity and risk of the patients presenting complaint, exam findings, and underlying comorbidities. However, ultimately, I feel
the patient is safe for outpatient management with close follow-up. Reasoning: Work-up reassuring, does not reveal any acute life/organ threatening processes, patients symptoms well controlled upon reevaluation, reexamination is reassuring, vitals
are stable, patient agreeable with discharge, reliable for follow-up.
DIAGNOSIS
- Scalp laceration - ICD-10 S01.01XA
- Contusion of face - ICD-10 S00.83XA
*Pulse Oximetry
SaO2: 98
Oxygen Mode of Delivery: Room air
Patient hypoxic: no
*Critical Care Note
Total Time (30-74mins, 75-104mins- exclusive of procedures): Not Applicable
ED Attending Note
-
Portions of this chart may have been created with voice recognition software.� Occasional wrong word or��sound alike� substitutions may have occurred due to the inherent limitations of voice recognition software.
Discharge Plan
Departure
Patient Disposition: Home (Routine Discharge)
Date of Disposition: 07/03/25
Time of Disposition: 21:57
Patient with high blood pressure during this ER visit?: No
Discharge Problem:
Head injury, Facial laceration
Instructions: Laceration Repair With Stitches (DC)
Prescriptions:
No Action
pantoprazole [Protonix] 40 mg Tablet,Delayed Release (Dr/Ec)
40 mg PO DAILY
psyllium Packet
1 packet PO DAILY
therapeutic multivitamin Tablet
1 tab PO DAILY
acetaminophen [Tylenol Extra Strength] 500 mg Tablet
1,000 mg PO BID
ascorbic acid (vitamin C) [Vitamin C] 500 mg Tablet
500 mg PO DAILY
Xarelto 15 mg Tablet
15 mg PO QPM
atorvastatin 80 mg Tablet
80 mg PO QPM Qty: 30 0RF
clopidogrel 75 mg Tablet
75 mg PO DAILY Qty: 30 0RF
carvedilol 3.125 mg Tablet
3.125 mg PO BID Qty: 60 0RF
nitroglycerin 0.4 mg Tablet, Sublingual
0.4 mg sublingual [id number] PRN (Reason: chest pain) Qty: 10 0RF
Referrals:
Emani Garcia MD [Family Provider, Internal Medicine]
Activity Restrictions/Additional Instructions:
Keep wound clean and dry, change dressing if it becomes soiled or wet. Watch for signs of infection: fever over 100.5', increasing pain, red streaks around wound, swelling, drainage of pus, or bad smell. If any of these happen, return to ED
promptly. Return to ED or make an appointment with your doctor to have the 3 sutures removed in 7 days. All wounds may scar, however you may reduce the appearance of scarring by avoiding sun exposure to the scar and applying skin moisturizer with
spf protection to the scar once the wound is healed.
Interventions
Interventions:
*Risk Screen - Suicide Last Done: 07/03/25 19:22
*General Assessment Last Done: 07/03/25 19:22
*Neglect/Abuse Screening Last Done: 07/03/25 19:51
*ED- Fall Risk Assessment Last Done: 07/03/25 19:22
*ED COVID-19 Vaccine History Last Done: 07/03/25 19:22
*ED Influenza Vaccine History Last Done: 07/03/25 19:22
ED-Skin Assessment Last Done: 07/03/25 19:48
Discharge Date and Time
Print Language: THAI
[2025-07-03 20:00] VITALS: BP 192/99
[2025-07-03 21:00] VITALS: BP 137/77
== END 2025-07-03 22:23 | disposition home or self-care (01) ==
LOC: EMR 19:14
PROVIDERS: EMERGENCY PHYSICIAN Student in an Organized Health Care Education/Training Program; FAMILY PHYSICIAN Internal Medicine
DX: S09.90XA Unspecified injury of head, initial encounter (principal); S01.111A Laceration without foreign body of right eyelid and periocular area, initial encounter; W18.09XA Striking against other object with subsequent fall, initial encounter; Y92.009 Unspecified place in unspecified non-institutional (private) residence as the place of occurrence of the external cause; I48.91 Unspecified atrial fibrillation; I10 Essential (primary) hypertension; E78.00 Pure hypercholesterolemia, unspecified; I25.2 Old myocardial infarction; J45.909 Unspecified asthma, uncomplicated; K21.9 Gastro-esophageal reflux disease without esophagitis; K22.70 Barrett's esophagus without dysplasia; K44.9 Diaphragmatic hernia without obstruction or gangrene; Z79.01 Long term (current) use of anticoagulants; Z79.02 Long term (current) use of antithrombotics/antiplatelets; Z86.73 Personal history of transient ischemic attack (TIA), and cerebral infarction without residual deficits; Z95.5 Presence of coronary angioplasty implant and graft
CPT/HCPCS: 99284; 12011; 70450; 70480; 72125

== ENCOUNTER 2025-07-05 20:05 | Inpatient (IN) | payer MEDICARE, SELFPAY ==
[2025-07-05] VITALS (7 sets, daily range): BP systolic 131–171; BP diastolic 66–91; BMI 22.8; BMI 22.1
--- NOTE | 2025-07-05 16:16 | ED.GENMED ---
History of Present Illness
General
Chief Complaint: Musculo-Skeletal Complaint
Source: patient, spouse and family
Exam Limitations: none
Time Seen by Provider: 07/05/25 15:51
Nursing documentation reviewed up to this point in time: agreed with
History of Present Illness
History of Present Illness:
Note:
CHIEF COMPLAINT(S)
Pain and swelling in the right arm after a fall.
HISTORY OF PRESENT ILLNESS
The patient is an 84-year-old male who presents with pain and swelling in his right arm following a fall on Friday. He reports that he has been experiencing pain in the arm for a couple of years, which was exacerbated by the fall. The patient
states, 'Mckayla lost the use of it since the fall on Friday.' He had previously sought medical attention where his arm was stitched up, but notes they 'never looked at this one,' referring to his current issue with the arm. The patient describes
the pain as constant and worsening, localized primarily around the entire arm. He noticed that the arm was not swollen until recently. He indicates, 'If I lift this up, it goes right there,' pointing to the affected area. Over time, the pain was
noted to be significant enough to restrict movement. An ultrasound is planned to evaluate for possible venous leakage as suggested by the attending physician.
ADDITIONAL HISTORY OBTAINED FROM SOURCES OTHER THAN THE PATIENT
Per the patients daughter, who is present at the visit, the patient had not experienced this type of swelling before the fall, and it was around 1 PM when she noticed the arm condition worsening, prompting her to encourage him to seek evaluation.
PHYSICAL EXAM
General: Alert, no acute distress.
Skin: Warm, dry. ecchyhmosis left arm
Head: Normocephalic, atraumatic.
Neck: Supple, trachea midline.
Eye ears, nose, mouth and throat: Oral mucosa moist.
Cardiovascular: Normal peripheral perfusion, No edema.
Respiratory: Respirations are non-labored.
Gastrointestinal: Abdomen nondistended.
Back: Normal range of motion, Normal alignment.
Musculoskeletal: Normal range of motion, normal strength observed previously.
Neurological: Alert and oriented to person, place, time, and situation, No focal neurological deficit observed.
Psychiatric: Cooperative, appropriate mood & affect.
PLAN
An ultrasound of the right arm is planned to assess for possible venous leakage contributing to the swelling and pain.
DIFFERENTIAL DIAGNOSIS
The Differential Diagnosis includes, in no particular order and is not limited to:
1. Traumatic injury to the arm (contusion, fracture)
2. Venous thrombosis or leakage
3. Infectious cellulitis or abscess
4. Hematoma formation
5. Tendon or ligament injury
6. Arthritis exacerbation
7. Bursitis
8. Neuropathy or nerve compression
9. Lymphedema
10. Vascular anomaly or malformation.
CARE-UPDATE
07/05/25 - 20:08
Patients left biceps hematoma and tendon rupture updated with a recommendation to hold anticoagulants and KIRAN inhibitors following discussion with vascular surgery. Hyponatremia managed with IV saline therapy after nephrology consultation.
Disposition:
SUMMARY OF ENCOUNTER
The patient, an 84-year-old male, was seen in the emergency department due to significant pain and swelling in the right arm following a fall. The arm showed increasing discomfort over the past few days. Additionally, he had past medical
interventions for his arm, but the current issue had not been addressed before this visit. On examination, the patient had a left biceps hematoma and a left tricep tendon rupture, along with hyponatremia. Given these findings, the patient was
admitted to the hospital for further management. Normal saline was administered to manage the hyponatremia.
DISPOSITION
Admit to hospitalists.
ASSESSMENT
The patient presented with a left biceps hematoma and left tricep tendon rupture, accompanied by hyponatremia.
MANAGEMENT OF THE PATIENTS CARE WAS DISCUSSED WITH
Consultations were held with a vascular surgeon and nephrologists to discuss the management of the hematoma and rupture, along with the hyponatremia.
PLAN
The plan includes admission to the hospital for continuous monitoring due to the risk of compartment syndrome. Normal saline administration is to continue as a part of the patients treatment for hyponatremia, and surgical consultation will aid in
management for the diagnosed tendon rupture.
MEDICAL DECISION MAKING
-Complexity of Data Reviewed: Chronic conditions affecting care include a history of enduring arm pain, hematoma, tendon rupture, and hyponatremia. Differential diagnosis considered traumatic injury to the arm (contusion, fracture), venous
thrombosis or leakage, infectious cellulitis or abscess, hematoma formation, tendon or ligament injury, arthritis exacerbation, bursitis, neuropathy or nerve compression, lymphedema, and vascular anomaly or malformation.
-Data:
Category 3
Discussion of management with other healthcare providers, specifically with vascular surgery and nephrologists.
DIAGNOSIS
- Hematoma of left biceps - ICD-10-CM: M79.81
- Rupture of triceps tendon, left arm - ICD-10-CM: S46.312A
- Hyponatremia - ICD-10-CM: E87.1
Past History
Past History
ED Past Medical History: Arrthythmia (Atrial fib), Asthma, GERD, HTN, Hypercholesterolemia, AL and Other (TIA, Barretts esophagus, Anemia, Hiatal hernia, )
ED Past Surgical History: Appendectomy, Cardiac (Stents X 2), Orthopedic (Carpal tunnel release right, Bilateral knee surgery, Right shoulder surgery, ), Tonsilectomy and Other (Cataracts)
Social History
Tobacco: Non-smoker
Alcohol: Occasional
Drug: None
Personal:
Living: with family
Phy Exam
Physical Exam
Physical Exam:
.
Course
Orders/Labs/Results
Orders:
Orders
07/05/25 16:12
Upper Ext Angio w/wo Contrast CT [CT Upper Ext Angio W/wo Iv Con] Urgent
Comment:
Reason For Exam: left upper extremity swelling ecchymosis worsening
IV Insert/Care/Rem.- Treatment PRN
07/05/25 16:37
Type+Screen Urgent
Complete Blood Count/With Diff Urgent
Comprehensive Metabolic Panel Urgent
Serum Osmolality Urgent
Comment: ADD ON
07/05/25 17:24
Add On- LAB Urgent
Tests Added?: serum osmolality
07/05/25 19:07
Osmolality, Random Urine Urgent
Date Specimen was Collected: 07/05/25
Time Specimen was Collected: 18:14
Urine Sodium Urgent
Date Specimen was Collected: 07/05/25
Time Specimen was Collected: 18:14
07/05/25 19:12
Kiran Wrap Left-Treatment ONCE
07/05/25 19:30
0.9% Sodium Chloride 1000 ml [Nss] 1,000 ml IV 60 mls/hr
07/05/25 19:52
Admit/Transfer Patient As Directed
Co-Sign Provider:
Level of Care: Inpatient admission
Assign to:: Telemetry
Physician / Group: Fabio
Diagnosis: L Biceps Tear / Hematoma, Hyponatremia
Reason for Telemetry: Arrhythmia
Date to Stop Telemetry: 07/08/25
Time to Stop Telemetry: 11:00
Reason for Hospitalization: L Biceps Tear / Hematoma, Hyponatremia
Expected length of stay greater than two midnights?: Yes
ELOS- Estimated Length of Stay in days: 3
I certify the patient meets the requirements for IP care: Yes
PRN Pain Medication Management As Directed
May give lesser potent ordered pain med per pt: Yes
preference::
Protocol:: Medication orders for pain may be administered in a
manner that supports deferring to patient preference
when the pt is:
- Requesting an ordered lesser potent pain medication.
Least to most potent pain medications are defined
as: acetaminophen < NSAID < tramadol < opioids
(morphine, oxycodone, hydromorphone).
- Requesting a lesser dose of the same medication IF
ORDERED.
- Requesting a less intrusive route of administration
if both routes are prescribed by the provider (PO <
IV).
07/05/25 19:53
Code Status As Directed
Resuscitation Status: Full Code
07/08/25 11:00
DC Protocol for Telemetry ONCE
Abnormal Lab Results
07/05/25 07/05/25
16:37 19:07
RBC 3.13 L 10^6/uL
(4.70-6.10)
Hgb 9.6 L g/dL
(13.0-18.0)
Hct 28.1 L %
(39.0-52.0)
Abs Immat Gran (auto) 0.1 H 10^3/uL
(0-0.05)
Absolute Lymphs (auto) 0.8 L 10^3/uL
(1.2-3.4)
Absolute Monos (auto) 0.8 H 10^3/uL
(0.1-0.6)
Immature Gran % 1.2 H %
(0-0.5)
Lymphocytes % 14.0 L %
(20.5-51.1)
Monocytes % 14.3 H %
(1.7-9.3)
Sodium 122 L mmol/L
(135-145)
Chloride 93 L mmol/L
(98-107)
Glucose 107 H mg/dl
(70-99)
Serum Osmolality 269 L mOsm/kg
(275-300)
Total Protein 5.9 L g/dl
(6.3-8.2)
Urine Osmolality 148 L mOsm/kg
(300-900)
Urine Sodium 20 L mmol/L
(30-90)
07/05/25 16:37
07/05/25 16:37
Vital Signs
Initial and Last Documented VS:
Initial Vital Signs
Temp Pulse Resp BP Pulse Ox
98 F 68 16 148/72 100
07/05/25 14:26 11/04/25 14:26 07/05/25 14:26 07/05/25 14:26 07/05/25 14:26
Last Documented Vital Signs
Temp Pulse Resp BP Pulse Ox
98.6 F 66 20 131/85 96
07/05/25 16:56 07/05/25 18:52 07/05/25 18:52 07/05/25 18:52 07/05/25 18:52
*Pulse Oximetry
SaO2: 100
Oxygen Mode of Delivery: Room air
Patient hypoxic: no
*Critical Care Note
Total Time (30-74mins, 75-104mins- exclusive of procedures): Not Applicable
ED Attending Note
-
Portions of this chart may have been created with voice recognition software.� Occasional wrong word or��sound alike� substitutions may have occurred due to the inherent limitations of voice recognition software.
Discharge Plan
Departure
Patient Disposition: Admit
Date of Disposition: 07/05/25
Time of Disposition: 19:18
Admit to: Telemetry
Presentation/result/management discussed w/ accepting MD/DO: Hospitalist
Patient with high blood pressure during this ER visit?: Yes
Condition: Fair
Discharge Problem:
Traumatic hematoma of left upper arm, Traumatic rupture of left triceps tendon, Acute hyponatremia
Interventions
Interventions:
*Risk Screen - Suicide Last Done: 07/05/25 14:30
*General Assessment Last Done: 07/05/25 16:56
*Neglect/Abuse Screening Last Done: 07/05/25 14:30
*ED- Fall Risk Assessment Last Done: 07/05/25 16:56
*ED COVID-19 Vaccine History Last Done: 07/05/25 16:56
*ED Influenza Vaccine History Last Done: 07/05/25 16:56
ED-Musculoskeletal Assessment Last Done: 07/05/25 16:56
[2025-07-05 16:50] LABS: Hematocrit 28.1 % (39.0-52.0); Hemoglobin 9.6 g/dL (13.0-18.0); Mean Corp Hgb Conc. 34.2 g/dL (33.0-37.0); Mean Corpuscular Volume 89.8 fL (80.0-94.0); Nucleated Red Blood Cells % 0 % (-); Platelet Count 160 10^3/uL (130-400); Red Cell Dist. Width 13.3 % (11.5-14.5)
[2025-07-05 17:05] LABS: ALT (SGPT) 19 U/L (0-50); AST (SGOT) 32 U/L (17-59); Albumin 3.5 g/dl (3.5-5.0); Alkaline Phosphatase 61 U/L (38-126); Blood Urea Nitrogen 16 mg/dl (9-20); Calcium 8.8 mg/dl (8.4-10.2); Carbon Dioxide 27 mmol/L (22-30); Chloride 93 mmol/L (98-107); Estimated Creatinine Clearance 64 ml/min; Glucose 107 mg/dl (70-99); Potassium 4.6 mmol/L (3.5-5.1); Sodium 122 mmol/L (135-145); Total Protein 5.9 g/dl (6.3-8.2); eGFR > 60.00
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
[2025-07-05] MEDS: NSS 1000 IV (20:02)
[2025-07-05] MEDS: COREG 3.125 MG PO (22:25)
[2025-07-05] MEDS: TYLENOL 1000 MG PO (22:25)
--- NOTE | 2025-07-05 23:00 | PTCARENOTE ---
patient received from ED, AAOx3, CHICKALOON,. NSR on monitor, +2 edema to left upper extremity, + radial pulse. Lungs clear, on room air. Abdomen spft with hypoactive bowel sounds. Left arm bruised, sybil maintained. Right eye bruised. sutures
approximated on right eye brow. bed alarm in placed. #20 g in RAC flushed and patent
[2025-07-06 03:57] VITALS: BP 124/71
[2025-07-06 08:00] VITALS: BP 152/82
[2025-07-06] MEDS: COREG 3.125 MG PO ×2 (08:46→21:00)
[2025-07-06] MEDS: PROTONIX 40 MG PO (08:46)
[2025-07-06] MEDS: TYLENOL 1000 MG PO ×3 (08:46→22:02)
--- NOTE | 2025-07-06 10:39 | CM ---
Chart reviewed and spoke with patient at bedside
Pt lives in a 3rd floor apartment with . Elevator access
[employer]
no DME
PCP Emani Garcia
RX plan yes
Pharmacy [facility] in [place]
hx of VN not sure
no hx of SNF
DCP is back home medically cleared
can provide transportation
CM to continue with dcp needs
[2025-07-06 10:54] LABS: Hematocrit 30.4 % (39.0-52.0); Hemoglobin 10.5 g/dL (13.0-18.0); Mean Corp Hgb Conc. 34.5 g/dL (33.0-37.0); Mean Corpuscular Volume 89.9 fL (80.0-94.0); Platelet Count 184 10^3/uL (130-400); Red Cell Dist. Width 13.2 % (11.5-14.5)
--- NOTE | 2025-07-06 11:11 | CON.VAS ---
Addendum entered and electronically signed by John Mclaughlin MD 07/06/25 14:50:
Seen and examined with PRESLEY Lam. Agree with findings as noted below. Status post fall. Noted left upper extremity swelling and bruising. Prompted admission. CT angiogram demonstrated no evidence of extravasation, but intramuscular left bicep
hematoma noted with possible rupture of head of the bicep tendon. Patient notes no significant pain at rest. No weakness or numbness in his hand. Remainder of history as noted below. On exam/he is awake and alert. No acute distress. Breathing
is unlabored. Left upper extremity upper and forearms are soft. Slight tenderness to deeper palpation in the muscle compartments, but the muscle compartments are all soft. No evidence of compartment syndrome. Hand is warm. Neuro motor/sensory
intact. CT scan reviewed. Plan/ Hematoma intramuscular left upper extremity. No signs or symptoms of compartment syndrome. No extravasation on CT scan. Nothing to offer from a vascular perspective. Recommend orthopedic evaluation for possible
tendon rupture with associated injury in the muscle. Findings and plan communicated to hospitalist.
Original Note:
Consultation
Consultation Request
Date/Time Consultation Performed: 07/06/2025 at 1130
Requesting Provider: Hospitalist
Performing Provider: SAFIA Villafana for John Mclaughlin M.D.
Reason for Consultation: Left upper extremity bicep hematoma
Medical History
-
Chief Complaint: Left upper extremity bicep hematoma
History of Present Illness:
This is an 84-year-old male with significant past medical history for paroxysmal atrial fibrillation on Xarelto, coronary disease, GERD, and hypertension who had a mechanical fall on Friday (07/03/2025) but indicates he landed on his right side. He
was evaluated in our ED and required sutures above right orbital and subsequently discharged home. He indicates that his right arm was bothersome so he was doing increased exercises of both extremities to help improve his limited mobility of the
right side, and because his right side was hurting he had not removed his shirt for several days following the fall. Upon removal of his shirt he noted the entirety of his left upper extremity with increased swelling and bruising prompting ED
evaluation on 07/05/2025. As part of ED evaluation he underwent CT angiogram which demonstrated, '9 cm acute intramuscular hematoma in the left bicep muscle, possibly secondary to an acute rupture of the proximal long head bicep tendon. 'Patient
endorses that he has had chronic left shoulder pain and rotator cuff tear limiting his shoulder and upper extremity movement on the left for well over a year. He denies any motor changes to elbow, wrist, and hand. Also endorses intact sensory of
left upper extremity.
Past Medical History
Past Medical History: Arrhythmias (Paroxysmal atrial fibrillation), CAD, GERD and HTN
Past Surgical History: Appendectomy, Orthopedic (Bilateral TKA) and Tonsilectomy
Social History
Tobacco: Non-Smoker
Alcohol: Occasional
Drug: None
Personal:
Living: With Family
Allergies / Home Medications
Allergy/AdvReac Type Severity Reaction Status Date / Time
tetracycline Allergy Unknown Verified 07/03/25 19:26
�Medication �Instructions �Recorded �Confirmed �Type
acetaminophen 500 mg tablet 1,000 mg PO BID pain 06/16/24 07/05/25 History
(Tylenol Extra Strength)
ascorbic acid (vitamin C) 500 mg 500 mg PO DAILY Supplement 06/16/24 07/05/25 History
tablet (Vitamin C)
pantoprazole 40 mg tablet,delayed 40 mg PO DAILY Gastrointestinal 06/16/24 07/05/25 History
release (Protonix) Issue
psyllium 1 packet PO DAILY Constipation 06/16/24 07/05/25 History
rivaroxaban 15 mg tablet (Xarelto) 15 mg PO QPM Blood Clot 06/16/24 07/05/25 History
Prevention/Tx
therapeutic multivitamin 1 tab PO DAILY Supplement 06/16/24 07/05/25 History
atorvastatin 80 mg tablet 80 mg PO QPM #30 tabs 06/19/24 07/05/25 Rx
carvedilol 3.125 mg tablet 3.125 mg PO BID #60 tabs 06/19/24 07/05/25 Rx
clopidogrel 75 mg tablet 75 mg PO DAILY #30 tabs 06/19/24 07/05/25 Rx
nitroglycerin 0.4 mg sublingual 0.4 mg sublingual [id number] PRN 06/19/24 07/05/25 Rx
tablet chest pain #10 tabs
Review of Systems
-
History Source: Patient
Constitutional: Reports No Symptoms
EENT: Reports No Symptoms
Respiratory: Reports No Symptoms
Cardiac: Reports No Symptoms
Abdomen/GI: Reports No Symptoms
: Reports No Symptoms
Musculoskeletal: Reports Edema (+1 edema left upper extremity)
Skin: Reports Other (Left lower extremity ecchymosis)
Neurological: Reports No Symptoms
Physical Exam
Vital Signs
Temp Pulse Resp BP Pulse Ox
97.9 F 70 18 152/82 99
07/06/25 08:00 07/06/25 08:00 07/06/25 08:00 07/06/25 08:00 07/06/25 08:00
Lab Results
07/06/25 10:44
Physical Exam
General: No Apparent Distress
HEENT: Normocephalic, Anicteric and Atraumatic
Respiratory: Non Labored Respirations
Cardiac: Negative JVD
GI: Soft, Non Tender and Non Distended
Musculoskeletal: Edema (Left upper extremity +1 edema, all compartments soft, left radial pulse +1 palpable, hand grasp with 5 out of 5 strength, full flexion and extension of the left elbow)
Skin: Warm and Other (Left lower extremity with ecchymosis, tenderness to palpation over bicep)
Neuro: AO x 3
Assessment / Plan
-
Assessment: 84-year-old male status post fall with CT evidence of left upper extremity intramuscular hematoma and left bicep muscle possibly secondary to acute rupture of the proximal long head bicep tendon
Plan:
No evidence of active extravasation on CT imaging, all left upper extremity compartments soft, patient with no evidence of motor or sensation changes from baseline at left upper extremity thus no indication for surgical intervention.
Would recommend evaluation with orthopedics given CT imaging with possible acute rupture of the proximal long head of bicep
Patient seen evaluated bedside with Dr. John Mclaughlin M.D. who agrees with above plan.
[2025-07-06 11:21] LABS: Blood Urea Nitrogen 12 mg/dl (9-20); Calcium 8.8 mg/dl (8.4-10.2); Carbon Dioxide 27 mmol/L (22-30); Chloride 96 mmol/L (98-107); Estimated Creatinine Clearance 49 ml/min; Glucose 121 mg/dl (70-99); Potassium 4.2 mmol/L (3.5-5.1); Sodium 129 mmol/L (135-145); eGFR > 60.00
--- NOTE | 2025-07-06 11:22 | W.CON.NEPH ---
Consultation
-
Date/Time Consultation Requested: 07/06/25 11am
Date/Time Consultation Performed: 07/06/25 11am
Requesting Provider: Dr. Mccarthy
Performing Provider: Dr. Cardenas
Reason for Consultation: hyponatremia
Medical History
-
Chief Complaint: hyponatremia
History of Present Illness:
This is an 84-year-old gentleman who has hyperlipidemia controlled with statin therapy, atrial fibrillation with rate control with beta-vilma therapy and anticoagulation with Xarelto. He also has reflux which is controlled with proton pump
inhibitor therapy. On Friday evening he had fallen onto his right side and head resulted in a laceration above his right eye. He came to the emergency room received sutures. After discharge however he started noticing significant pain in his left
arm with swelling and bruising. He returns emergency room where imaging study revealed a large intramuscular hematoma left biceps muscle. He was also noted to be hyponatremic at 122. He reports that he had been noted to be hyponatremic previously
and this was being followed by his primary care physician. He was adding additional salt at their request to control his hyponatremia.
Past Medical History
ASCVD
Hypertension
Paroxysmal Atrial Fibrillation
GERD
Bilateral TKA
Right Reverse TSA
Appendectomy
T&A
Social History
Tobacco: Non-Smoker
Alcohol: Occasional
Family History
Family History: Not Pertinent
Allergies / Home Medications
Allergy/AdvReac Type Severity Reaction Status Date / Time
tetracycline Allergy Unknown Verified 07/03/25 19:26
�Medication �Instructions �Recorded �Confirmed �Type
acetaminophen 500 mg tablet 1,000 mg PO BID pain 06/16/24 07/05/25 History
(Tylenol Extra Strength)
ascorbic acid (vitamin C) 500 mg 500 mg PO DAILY Supplement 06/16/24 07/05/25 History
tablet (Vitamin C)
pantoprazole 40 mg tablet,delayed 40 mg PO DAILY Gastrointestinal 06/16/24 07/05/25 History
release (Protonix) Issue
psyllium 1 packet PO DAILY Constipation 06/16/24 07/05/25 History
rivaroxaban 15 mg tablet (Xarelto) 15 mg PO QPM Blood Clot 06/16/24 07/05/25 History
Prevention/Tx
therapeutic multivitamin 1 tab PO DAILY Supplement 06/16/24 07/05/25 History
atorvastatin 80 mg tablet 80 mg PO QPM #30 tabs 06/19/24 07/05/25 Rx
carvedilol 3.125 mg tablet 3.125 mg PO BID #60 tabs 06/19/24 07/05/25 Rx
clopidogrel 75 mg tablet 75 mg PO DAILY #30 tabs 06/19/24 07/05/25 Rx
nitroglycerin 0.4 mg sublingual 0.4 mg sublingual [id number] PRN 06/19/24 07/05/25 Rx
tablet chest pain #10 tabs
Physical Exam
Vital Signs
Vital Signs
Temp Pulse Resp BP Pulse Ox
97.9 F 70 18 152/82 99
07/06/25 08:00 07/06/25 08:00 07/06/25 08:00 07/06/25 08:00 07/06/25 08:00
Lab Results
WBC 5.8 10^3/uL (4.8-10.8) 07/06/25 10:44
RBC 3.38 10^6/uL (4.70-6.10) L 07/06/25 10:44
Hgb 10.5 g/dL (13.0-18.0) L 07/06/25 10:44
Hct 30.4 % (39.0-52.0) L 07/06/25 10:44
Plt Count 184 10^3/uL (130-400) 07/06/25 10:44
Sodium 129 mmol/L (135-145) L 07/06/25 10:44
Potassium 4.2 mmol/L (3.5-5.1) 07/06/25 10:44
Chloride 96 mmol/L (98-107) L 07/06/25 10:44
Carbon Dioxide 27 mmol/L (22-30) 07/06/25 10:44
BUN 12 mg/dl (9-20) 07/06/25 10:44
Creatinine 1.0 mg/dL (0.7-1.3) 07/06/25 10:44
eGFR > 60.00 07/06/25 10:44
Glucose 121 mg/dl (70-99) H 07/06/25 10:44
Calcium 8.8 mg/dl (8.4-10.2) 07/06/25 10:44
Albumin 3.5 g/dl (3.5-5.0) 07/05/25 16:37
Laboratory Tests
06/17/24 06/19/24 09/09/24
03:08 04:26 15:06
Sodium 135 134 L 128 L
Serum Osmolality
Urine Osmolality
Urine Sodium
07/05/25 07/05/25
16:37 19:07
Sodium 122 L
Serum Osmolality 269 L
Urine Osmolality 148 L
Urine Sodium 20 L
CTA 07/05/25
IMPRESSION:
1. LARGE 9.0 cm ACUTE INTRAMUSCULAR HEMATOMA in the LEFT BICEPS MUSCLE (possibly secondary to an acute rupture of the proximal long head biceps tendon).
2. Severe subcutaneous edema throughout the left elbow and forearm.
3. SEVERE OSTEOARTHRITIS of the LEFT GLENOHUMERAL JOINT.
4. Large left glenohumeral joint effusion containing severe synovitis.
5. Chronic full-thickness left rotator cuff tear.
6. 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
7. Moderate to severe arthritis in the left hip.
8. Small left indirect inguinal hernia containing nonobstructed small bowel.
CT Head/orbits 07/03/25
IMPRESSION:
HEAD CT:
1. No CT evidence for acute intracranial hemorrhage or calvarial fracture.
2. 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
3. Mild diffuse cerebral and cerebellar volume loss.
ORBITS CT:
1. LARGE 6.8 cm ACUTE PRESEPTAL SOFT TISSUE HEMATOMA overlying the right orbit.
2. No CT evidence for acute intraorbital injury.
3. No CT evidence for acute orbital wall or facial bone fracture.
Physical Exam
Patient is awake alert oriented and in no distress. Mood and affect were pleasant, insight and judgment were good. Pupils are equal round and reactive to light, extraocular movements are intact, sclera were anicteric. Hearing was normal, ears and
nose are intact. Oropharynx was clear. Neck was supple with trachea midline and no thyromegaly. Heart was regular rate and rhythm without rubs. Lower extremities without edema. Left upper extremity was with 2+ edema and was wrapped. Lungs were
clear to auscultation bilaterally and with normal excursion. Abdomen was soft, nontender, with normal active bowel sounds, and no hepatosplenomegaly. Skin was without rash and with normal turgor.
Data Reviewed
-
CT Scan: Report Reviewed by me
Labs: Labs Reviewed by me
Old Records: Reviewed
Assessment/Plan
-
Assessment
Left Biceps Long Head Tendon Rupture
LUE Hematoma
Fall / Scalp Laceration
Acute on Chronic Hyponatremia
ASCVD
Paroxysmal Atrial Fibrillation
Hypertension
Plan
NSS IVF still
follow BMP
pain control
vascular evaluation/plan in progress
If discharge is planned, he could be discharged on sodium chloride tablets 0.5g twice daily with blood work performed early next week
[2025-07-06 11:25] VITALS: BP 115/55; PULSE 73; O2SAT 96
[2025-07-06] MEDS: NSS 1000 IV (13:02)
[2025-07-06 13:04] VITALS: BP 115/55; O2SAT 96
--- NOTE | 2025-07-06 13:09 | W.PN.HOSP.TC ---
Today's Communication/Plan
-
Monitor vital signs see plan
Monitor hemoglobin
Monitor sodium
Gentle hydration
Restart Plavix
Hold Xarelto for now
Assessment / Plan
Assessment / Plan
General:in no acute distress
HEENT: Other ( R supraorbital laceration with local edema. No active bleeding. Sutures in place. Scattered ecchymoses.)
Respiratory: Clear; No Wheezes, Rales or Rhonchi
Cardiac: S1/S2, Regular Rhythm and Murmur
GI: Soft, Non Tender, Non Distended and Normal Bowel Sounds
Musculoskeletal: Other (LUE with decreased ROM at the shoulder (chronic) and elbow (new). Pulses at the wrist intact. Hand / finger movement intact.)
Neuro: AO x 3
Left Biceps Long Head Tendon Rupture
LUE Hematoma secondary to the above
- Hold Xarelto and Plavix acutely.
- Compression, elevation, pain control, supportive care.
- Follow neurovascular examination for changes.
- Vascular Surgery evaluation / Orthopedic evaluation for additional recommendations. Discussed with vascular surgery and there is no acute intervention needed from their standpoint as there is no active extravasation. Discussed with Tiffany Mccall
Theresa who recommended patient to follow-up with his outpatient orthopedics Dr. Gómez outpatient and given his age they would not perform any surgery from my standpoint
- Follow H&H for changes. Hgb currently appears to be at baseline.
Fall / Scalp Laceration
- Stable. No new pain / bleeding / etc in the head / face / etc.
- Continue local care / maintain dressing.
- Monitor for any focal neurologic changes, etc.
Acute on Chronic Hyponatremia
- Na = 122
gentle hydration per nephro
- Not on any specific culprit meds.
- Urine studies pending.
- Fluid restriction and follow for return to baseline.
ASCVD
CAD s/p stent
- Stable. No chest pain or dyspnea.
- Continue carvedilol / statin.
restart plavis
Paroxysmal Atrial Fibrillation
- Stable. Continue carvedilol. Hold Xarelto as noted above.
Benign Hypertension
- Stable. Continue carvedilol.
DVT Prophylaxis: SCDs
Code Status: Full
Anticipated Discharge: Within 24 hours
Subjective/Interval History
-
Date of Service: July 06, 2025
denies nausea
Objective Data
-
Labs:
Laboratory Results
07/06/25
10:44
WBC 5.8
Hgb 10.5 L
Hct 30.4 L
Plt Count 184
Sodium 129 L
Potassium 4.2
Chloride 96 L
Carbon Dioxide 27
BUN 12
Creatinine 1.0
Glucose 121 H
Calcium 8.8
Vital Signs:
Vital Signs
Temp Pulse Resp BP Pulse Ox
97.9 F 70 18 152/82 99
07/06/25 08:00 07/06/25 08:00 07/06/25 08:00 07/06/25 08:00 07/06/25 08:00
I&O
07/05/25 07/06/25 07/07/25
06:59 06:59 06:59
Intake Total 240 / 240
Balance 240 / 240
[2025-07-06] MEDS: LIPITOR 80 MG PO (16:24)
[2025-07-06] MEDS: PLAVIX 75 MG PO (16:24)
[2025-07-06 19:41] VITALS: BP 142/70
[2025-07-06 23:53] VITALS: BP 166/85
[2025-07-07] MEDS: NSS 1000 IV (03:26)
[2025-07-07 03:48] VITALS: BP 157/81
[2025-07-07 07:15] VITALS: BP 170/65
[2025-07-07 07:18] LABS: Hematocrit 27.2 % (39.0-52.0); Hemoglobin 9.4 g/dL (13.0-18.0); Mean Corp Hgb Conc. 34.6 g/dL (33.0-37.0); Mean Corpuscular Volume 92.5 fL (80.0-94.0); Nucleated Red Blood Cells % 0 % (-); Platelet Count 192 10^3/uL (130-400); Red Cell Dist. Width 13.2 % (11.5-14.5)
[2025-07-07 07:50] LABS: ALT (SGPT) 18 U/L (0-50); AST (SGOT) 29 U/L (17-59); Albumin 3.1 g/dl (3.5-5.0); Alkaline Phosphatase 70 U/L (38-126); Blood Urea Nitrogen 16 mg/dl (9-20); Calcium 8.2 mg/dl (8.4-10.2); Carbon Dioxide 22 mmol/L (22-30); Chloride 103 mmol/L (98-107); Estimated Creatinine Clearance 55 ml/min; Glucose 87 mg/dl (70-99); Potassium 4.1 mmol/L (3.5-5.1); Sodium 129 mmol/L (135-145); Total Protein 5.4 g/dl (6.3-8.2); eGFR > 60.00
[2025-07-07] MEDS: TYLENOL 1000 MG PO (08:20)
[2025-07-07] MEDS: COREG 3.125 MG PO (08:20)
[2025-07-07] MEDS: PROTONIX 40 MG PO (08:20)
[2025-07-07] MEDS: PLAVIX 75 MG PO (08:20)
--- NOTE | 2025-07-07 09:55 | W.PN.NEPH.PH ---
Today's Communication / Plan
-
increase coreg
Assessment/Plan
-
Assessment
Left Biceps Long Head Tendon Rupture
LUE Hematoma
Fall / Scalp Laceration
Acute on Chronic Hyponatremia
ASCVD
Paroxysmal Atrial Fibrillation
Hypertension
Plan
cap IVF
follow BMP
pain control
increase coreg
if dc , BMP friday
-
-
Date of Service: July 07, 2025
CC / HPI / ROS
-
Chief Complaint:
hyponatremia
History of Present Illness:
BP high
Hgb stable 9.4
Na stable at 129
Review of Systems:
eating well
no CP/SOB
Labs
-
Labs:
WBC 4.8 10^3/uL (4.8-10.8) 07/07/25 06:42
RBC 2.94 10^6/uL (4.70-6.10) L 07/07/25 06:42
Hgb 9.4 g/dL (13.0-18.0) L 07/07/25 06:42
Hct 27.2 % (39.0-52.0) L 07/07/25 06:42
Plt Count 192 10^3/uL (130-400) 07/07/25 06:42
Sodium 129 mmol/L (135-145) L 07/07/25 06:42
Potassium 4.1 mmol/L (3.5-5.1) 07/07/25 06:42
Chloride 103 mmol/L (98-107) 07/07/25 06:42
Carbon Dioxide 22 mmol/L (22-30) 07/07/25 06:42
BUN 16 mg/dl (9-20) 07/07/25 06:42
Creatinine 0.9 mg/dL (0.7-1.3) 07/07/25 06:42
eGFR > 60.00 07/07/25 06:42
Glucose 87 mg/dl (70-99) 07/07/25 06:42
Calcium 8.2 mg/dl (8.4-10.2) L 07/07/25 06:42
Albumin 3.1 g/dl (3.5-5.0) L 07/07/25 06:42
Physical Exam
-
Vital Signs:
Vital Signs
Temp Pulse Resp BP Pulse Ox
97.8 F 86 20 170/65 98
07/07/25 07:15 07/07/25 07:15 07/07/25 07:15 07/07/25 07:15 07/07/25 07:15
Cardiovascular:: Regular rate and rhythm
Respiratory:: Bilateral: Coarse
Lung Excursion:: Normal
Abdomen:: Nontender and Soft
Bowel Sounds:: Normal
Extremity Edema:: None: Bilateral:
--- NOTE | 2025-07-07 11:04 | W.PN.HOSP.TC ---
Today's Communication/Plan
-
Monitor vitals
See plan
Increase Coreg
Patient to get CBC and BMP on Friday with primary care provider
Discharge today
Resume Xarelto on 07/09/2025
Time of discharge 38 minutes
Assessment / Plan
Assessment / Plan
General:in no acute distress
HEENT: Other ( R supraorbital laceration with local edema. No active bleeding. Sutures in place. Scattered ecchymoses.)
Respiratory: Clear; No Wheezes, Rales or Rhonchi
Cardiac: S1/S2, Regular Rhythm and Murmur
GI: Soft, Non Tender, Non Distended and Normal Bowel Sounds
Musculoskeletal: Other (LUE with decreased ROM at the shoulder (chronic) and elbow (new). Pulses at the wrist intact. Hand / finger movement intact.) swelling appears to be improving
Neuro: AO x 3
Left Biceps Long Head Tendon Rupture
LUE Hematoma secondary to the above
Plavix restarted, restart Xarelto on 07/09/2025. Repeat CBC and BMP on Friday with primary care provider.
- Compression, elevation, pain control, supportive care. Can do compression for comfort
- Follow neurovascular examination for changes.
- Vascular Surgery evaluation / Orthopedic evaluation for additional recommendations. Discussed with vascular surgery and there is no acute intervention needed from their standpoint as there is no active extravasation. Discussed with Tiffany Mcclal
Theresa who recommended patient to follow-up with his outpatient orthopedics Dr. Gómez outpatient and given his age they would not perform any surgery from his standpoint
- Follow H&H for changes. Hgb currently appears to be at baseline.
Fall / Scalp Laceration
- Stable. No new pain / bleeding / etc in the head / face / etc.
- Continue local care / maintain dressing.
- Monitor for any focal neurologic changes, etc.
Acute on Chronic Hyponatremia
Sodium now improving, discussed with nephrology and patient to follow-up outpatient with BMP on Friday with PCP
gentle hydration per nephro
- Not on any specific culprit meds.
- Fluid restriction and follow for return to baseline.
ASCVD
CAD s/p stent
- Stable. No chest pain or dyspnea.
- Continue carvedilol / statin.
restart plavis
Paroxysmal Atrial Fibrillation
- Stable. Continue carvedilol. Hold Xarelto as noted above.
Benign Hypertension
- Stable. Increase Coreg
DVT Prophylaxis: SCDs
Code Status: Full
Anticipated Discharge: Today
Subjective/Interval History
-
Date of Service: July 07, 2025
Denies pain
Objective Data
-
Labs:
Laboratory Results
07/07/25
06:42
WBC 4.8
Hgb 9.4 L
Hct 27.2 L
Plt Count 192
Sodium 129 L
Potassium 4.1
Chloride 103
Carbon Dioxide 22
BUN 16
Creatinine 0.9
Glucose 87
Calcium 8.2 L
Total Bilirubin 0.8
AST 29
ALT 18
Alkaline Phosphatase 70
Vital Signs:
Vital Signs
Temp Pulse Resp BP Pulse Ox
97.8 F 86 20 170/65 98
07/07/25 07:15 07/07/25 07:15 07/07/25 07:15 07/07/25 07:15 07/07/25 07:15
I&O
07/06/25 07/07/25 07/08/25
06:59 06:59 06:59
Intake Total 240 / 240 960 / 960
Balance 240 / 240 960 / 960
--- NOTE | 2025-07-07 11:13 | W.DCSUMMARY ---
Discharge Summary
Discharge Data
Date of Admission: 07/05/25
Date of Discharge: 07/07/25
-
Pending Results: No
Hospital Course
84-year-old male with past medical history of hyponatremia, CAD status post stent, paroxysmal atrial fibrillation, benign hypertension, osteoarthritis came to the hospital after a fall with left bicep long head tendon rupture and left upper
extremity hematoma. Patient was seen by vascular surgery who did not do any intervention given patient had no active extravasation. Orthopedics was also consulted from Tiffany who instructed to have patient follow-up with his outpatient
orthopedics for his tendon rupture. For his hematoma Xarelto was held and he was instructed to resume Xarelto on 07/09/2025. Patient instructed to follow-up closely with orthopedics next week outpatient. For his hyponatremia he was seen by
nephrology. His sodium continue to improve over time. On discharge he was instructed to get repeat BMP outpatient. Once his symptoms continue to improve, he was then discharged home with instructions to follow-up with all his physicians
outpatient.
Discharge Plan
-
Patient Disposition: Home (Routine Discharge)
Discharge Diagnosis/Procedures: Left Biceps Long Head Tendon Rupture
LUE Hematoma
Acute on chronic hyponatremia
Diet: As tolerated
Activity: As tolerated
Driving Restrictions: As prior to admission
Bathing Restrictions: None
Blood Work: CBC and BMP on Friday with primary care provider
Referrals:
Carson Gómez MD [Active, Orthopedics] - in less than 1 week
Shen Cardenas MD [Active, Nephrology]
Emani Garcia MD [Family Provider, Internal Medicine] - in less than 1 week
Prescriptions:
New
carvedilol 6.25 mg Tablet
6.25 mg PO BID Qty: 60 0RF
Continued
pantoprazole [Protonix] 40 mg Tablet,Delayed Release (Dr/Ec)
40 mg PO DAILY
psyllium Packet
1 packet PO DAILY
therapeutic multivitamin Tablet
1 tab PO DAILY
acetaminophen [Tylenol Extra Strength] 500 mg Tablet
1,000 mg PO BID
ascorbic acid (vitamin C) [Vitamin C] 500 mg Tablet
500 mg PO DAILY
atorvastatin 80 mg Tablet
80 mg PO QPM Qty: 30 0RF
clopidogrel 75 mg Tablet
75 mg PO DAILY Qty: 30 0RF
nitroglycerin 0.4 mg Tablet, Sublingual
0.4 mg sublingual [id number] PRN (Reason: chest pain) Qty: 10 0RF
Held
Xarelto 15 mg Tablet
15 mg PO QPM
Hold Instructions: Resume on 07/09/25.
Discontinued
carvedilol 3.125 mg Tablet
3.125 mg PO BID Qty: 60 0RF
Discharge Orders:
Discharge Patient (As Directed); Ordered 07/07/25
Ordered By: Remberto Huang
Discharge Date and Time
Discharge Date/Time: 07/07/25 13:46
Print Language: THAI
[2025-07-07 11:53] VITALS: BP 155/67
--- NOTE | 2025-07-07 11:55 | CM ---
Chart reviewed. Met with patient at bedside
IMM signed. Patient is agreeable with dc home today with [facility]
Pt prefers [facility] at home. Referral sent
patient's is coming to pick him up today
No other questions at this time
Nurse made aware
[2025-07-07] MEDS: FLUZONE HIGH-DOSE 2025-26 0.5 ML IM (12:48)
== END 2025-07-07 13:46 | disposition home or self-care (01) | DRG 605 ==
LOC: 1 ACUTE 20:05
PROVIDERS: Student in an Organized Health Care Education/Training Program; ADMITTING PHYSICIAN Hospitalist; ATTENDING PHYSICIAN Internal Medicine; EMERGENCY PHYSICIAN Emergency Medicine; FAMILY PHYSICIAN Internal Medicine; OTHER PHYSICIAN Specialist; OTHER PHYSICIAN Surgery Vascular Surgery
PROC: 3E02340 Introduction of Influenza Vaccine into Muscle, Percutaneous Approach (ICD-10-PCS; 2025-07-07)
DX: S40.022A Contusion of left upper arm, initial encounter (principal); E87.1 Hypo-osmolality and hyponatremia; S46.312A Strain of muscle, fascia and tendon of triceps, left arm, initial encounter; I25.10 Atherosclerotic heart disease of native coronary artery without angina pectoris; I10 Essential (primary) hypertension; I48.0 Paroxysmal atrial fibrillation; K21.9 Gastro-esophageal reflux disease without esophagitis; Z88.1 Allergy status to other antibiotic agents; Z23 Encounter for immunization; Z95.5 Presence of coronary angioplasty implant and graft; W19.XXXA Unspecified fall, initial encounter; S01.01XA Laceration without foreign body of scalp, initial encounter; Z96.653 Presence of artificial knee joint, bilateral; E78.00 Pure hypercholesterolemia, unspecified; D64.9 Anemia, unspecified; J45.909 Unspecified asthma, uncomplicated; M16.12 Unilateral primary osteoarthritis, left hip; M19.012 Primary osteoarthritis, left shoulder; M65.912 Unspecified synovitis and tenosynovitis, left shoulder; M19.022 Primary osteoarthritis, left elbow; M75.122 Complete rotator cuff tear or rupture of left shoulder, not specified as traumatic; Z79.02 Long term (current) use of antithrombotics/antiplatelets; Z79.899 Other long term (current) drug therapy
CPT/HCPCS: 73206; 80048; 80053; 83930; 83935; 84300; 85025; 85027; 86850; 86900; 86901; 96360; 97110; 97162; 97166; 99285; Q9967